=== PATIENT | female | born 1955 | race Two or more races ===

== ENCOUNTER 2021-02-05 09:28 | Day surgery (SDC) | payer MEDICAID ==
[2021-01-31 10:04] LABS: Basophils # (auto) 0.1 10 ^3/uL (0-0.2); Basophils % (auto) 0.9 % (0.0-2.0); Eosinophils # (auto) 0.2 10 ^3/uL (0-0.8); Eosinophils % (auto) 3.1 % (0.0-7.0); Hematocrit 43.6 % (36.0-46.0); Hemoglobin 14.9 g/dL (12.2-16.2); Lymphocytes % (auto) 32.5 % (10.0-50.0); Mean Corpuscular Hemoglobin 31.3 pg (28.0-32.0); Mean Corpuscular Hgb Conc. 34.3 g/dL (32.0-36.0); Mean Corpuscular Volume 91.3 fL (80.0-100.0); Monocytes # (auto) 0.4 10 ^3/uL (0-1.3); Monocytes % (auto) 6.4 % (0.0-12.0); Neutrophils # (auto) 3.6 10 ^3/uL (1.6-8.6); Neutrophils % (auto) 57.1 % (37.0-80.0); Nucleated Red Blood Cells % 0.1 %; Platelet Count (auto) 151 10^3/uL (140-450); Red Blood Cells 4.77 10^6/uL (4.0-5.20); Red Cell Distribution Width 13.8 % (11.8-14.3); White Blood Cell 6.2 10^3/uL (4.4-10.8)
[2021-01-31 10:30] LABS: Urine Bacteria NONE SEEN /hpf (None Seen); Urine Blood Negative /uL (Negative); Urine Specific Gravity 1.012 (1.001-1.035); Urine WBC <1 /hpf (0 - 5)
[2021-01-31 11:22] LABS: Albumin 3.9 g/dL (3.4-5.0); Calcium 9.3 mg/dL (8.5-10.1)
[2021-01-31 11:26] LABS: BUN/Creatinine Ratio 17.9; Bilirubin, Total 1.2 mg/dL (0.2-1.0); Total Protein 7.3 g/dL (6.4-8.2)
[~2021-02-05] VITALS: Ht 157.5 cm; Wt 68.0 kg
[~2021-02-05 09:28] MED LIST: CITA10TA8 PO; ROSU5TAB5 PO
[2021-02-05] MEDS ORDERED: ceFAZolin 1GM/50ML 100 ML IV ONE (10:32)
[2021-02-05] MEDS ORDERED: fentaNYL CITRATE 100 MCG/2 ML VL ONE (10:39)
[2021-02-05] MEDS ORDERED: MIDAZOLAM HCL 1MG/1ML-2 ML VIAL ONE (10:39)
[2021-02-05] MEDS ORDERED: PROPOFOL 10 MG/ML 20 ML IV ONE (10:39)
[2021-02-05] MEDS ORDERED: ONDANSETRON HCL 4 MG/2 ML VIAL ONE (10:39)
[2021-02-05] MEDS ORDERED: SODIUM CHLORIDE LOCK 10 ML ONE (10:39)
[2021-02-05] MEDS ORDERED: LIDOCAINE 2% (LOCAL ANESTH.) PF 5ml SDV ONE (10:39)
[2021-02-05] MEDS ORDERED: LIDOCAINE 1% HCL (LOCAL ANESTH.) INJ 20ML MDV ONE (11:32)
[2021-02-05] MEDS ORDERED: BUPIVACAINE HCL 50 ML ONE (11:32)
[2021-02-05] MEDS ORDERED: METOCLOPRAMIDE HCL 5MG/ml INJ 2ml VIAL IV PRN (12:15)
[2021-02-05] MEDS ORDERED: MORPHINE SULFATE 4 MG/ML SYR/VIAL IV PRN (12:15)
[2021-02-05] MEDS ORDERED: HYDROmorphone HCL 2 MG/ML VL IV PRN (12:15)
[2021-02-05 13:25] VITALS: BP 126/66
== END 2021-02-05 13:50 | disposition home or self-care (01) ==
LOC: SUR 09:28
PROVIDERS: ATTEND Podiatrist
DX: M21.622 Bunionette of left foot (principal); M21.621 Bunionette of right foot; E78.00 Pure hypercholesterolemia, unspecified; E78.5 Hyperlipidemia, unspecified; Z98.890 Other specified postprocedural states; Z20.822 Contact with and (suspected) exposure to COVID-19; Z79.899 Other long term (current) drug therapy; Z87.891 Personal history of nicotine dependence; Z68.27 Body mass index [BMI] 27.0-27.9, adult
CPT/HCPCS: 28110; 36415; 80053; 81001; 85025; 85049; J0690; J2001; J2250; J2405; J2704; J2765; J3010; J3490; U0003

== ENCOUNTER → 2023-08-26 | Outpatient (CLI) | payer MEDICAID ==
[2023-08-26 07:33] LABS: Urine Bacteria NONE SEEN /hpf (None Seen); Urine Blood 2+ /uL (Negative); Urine Clarity Clear (Clear); Urine Color Yellow (Yellow); Urine Mucus FEW (None Seen); Urine Protein, UAD Negative (Negative); Urine Specific Gravity 1.026 (1.001-1.035); Urine Urobilinogen Normal (Negative); Urine WBC 1 /hpf (0 - 5); Urine pH 5.5 (5.0-8.0)
[2023-08-26 08:04] LABS: % Iron Saturation 23.3 % (15-50)
[2023-08-26 08:07] LABS: Alanine Aminotransferase 18 U/L (7-40); Alkaline Phosphatase 115 U/L (46-116); Anion Gap 7 (5-15); BUN/Creatinine Ratio 16.2 (10.0-20.0); Blood Urea Nitrogen 12 mg/dL (9-23); Calcium 9.6 mg/dL (8.5-10.1); Carbon Dioxide 27 mmol/L (20-30); Chloride 105 mmol/L (98-107); Glucose 93 mg/dL (74-106); Potassium 3.9 mmol/L (3.5-5.1); Sodium 139 mmol/L (136-145); Triglycerides 115 mg/dL (< 150)
[2023-08-26 08:08] LABS: LDL Cholesterol 79 mg/dL (< 100)
[2023-08-26 08:09] LABS: Albumin 4.6 g/dL (3.2-4.8); Aspartate Aminotransferase 20 U/L (13-40); Cholesterol 153 mg/dL (< 200); HDL Cholesterol 58 mg/dL (40-59); Total Protein 7.4 g/dL (5.7-8.2)
[2023-08-26 09:22] LABS: Uric Acid 4.7 mg/dL (3.1-7.8)
[2023-08-26 10:18] LABS: Folate (Folic Acid) 20.96 ng/mL (>5.38)
== END | disposition home or self-care (01) ==
LOC: LAB 06:44
PROVIDERS: ATTEND Family Medicine
DX: Z00.00 Encounter for general adult medical examination without abnormal findings (principal)
CPT/HCPCS: 36415; 80053; 80061; 81001; 82607; 82746; 83036; 83540; 83550; 84403; 84443; 84550; 97110; 97116; 97530

== ENCOUNTER 2023-10-22 13:56 | Emergency (ER) | payer MEDICAID ==
[~2023-10-22] VITALS: Ht 157.5 cm; Wt 71.2 kg
[2023-10-22 14:46] VITALS: BP 135/91; PULSE 81; RESP 18; O2SAT 100
[2023-10-22 15:09] VITALS: TEMP 97.9
[2023-10-22] MEDS: ACETAMINOPHEN 500 MG TAB PO ONE (15:09)
== END 2023-10-22 15:38 | disposition left against medical advice (07) ==
LOC: ER 13:56
DX: S00.83XA Contusion of other part of head, initial encounter (principal); W22.8XXA Striking against or struck by other objects, initial encounter; Y93.89 Activity, other specified; Y92.89 Other specified places as the place of occurrence of the external cause; Y99.8 Other external cause status

== ENCOUNTER → 2023-10-29 | Outpatient (CLI) | payer MEDICAID ==
[2023-10-29 08:15] LABS: Alanine Aminotransferase 54 U/L (7-40); Albumin 4.5 g/dL (3.2-4.8); Alkaline Phosphatase 141 U/L (46-116); Anion Gap 6 (5-15); Aspartate Aminotransferase 21 U/L (13-40); BUN/Creatinine Ratio 15.4 (10.0-20.0); Basophils # (auto) 0 10 ^3/uL (0-0.2); Basophils % (auto) 0.3 % (0.0-2.0); Blood Urea Nitrogen 12 mg/dL (9-23); Calcium 9.6 mg/dL (8.5-10.1); Carbon Dioxide 28 mmol/L (20-30); Chloride 104 mmol/L (98-107); Eosinophils # (auto) 0.2 10 ^3/uL (0-0.8); Eosinophils % (auto) 2.5 % (0.0-7.0); Glucose 102 mg/dL (74-106); Hematocrit 39.5 % (36.0-46.0); Hemoglobin 13.2 g/dL (12.2-16.2); Lymphocytes # (auto) 0.5 10 ^3/uL (0.4-5.4); Lymphocytes % (auto) 8.5 % (10.0-50.0); Mean Corpuscular Hemoglobin 29.8 pg (28.0-32.0); Mean Corpuscular Hgb Conc. 33.4 g/dL (32.0-36.0); Mean Corpuscular Volume 89.3 fL (80.0-100.0); Monocytes # (auto) 0.3 10 ^3/uL (0-1.3); Monocytes % (auto) 5.7 % (0.0-12.0); Neutrophils # (auto) 5.1 10 ^3/uL (1.6-8.6); Potassium 4.9 mmol/L (3.5-5.1); Red Blood Cells 4.43 10^6/uL (4.0-5.20); Sodium 138 mmol/L (136-145); White Blood Cell 6.1 10^3/uL (4.4-10.8)
[2023-10-29 08:16] LABS: Bilirubin, Total 0.8 mg/dL (0.2-1.0); Total Protein 7.5 g/dL (5.7-8.2)
== END | disposition home or self-care (01) ==
LOC: LAB 07:45
PROVIDERS: ATTEND Family Medicine
DX: Z13.228 Encounter for screening for other metabolic disorders (principal); R68.89 Other general symptoms and signs
CPT/HCPCS: 36415; 80053; 85025

== ENCOUNTER → 2023-12-08 | Outpatient (CLI) | payer MEDICAID ==
[2023-12-08 10:33] LABS: Basophils # (auto) 0 10 ^3/uL (0-0.2); Eosinophils # (auto) 0 10 ^3/uL (0-0.8); Eosinophils % (auto) 0.7 % (0.0-7.0); Hemoglobin 11.1 g/dL (12.2-16.2); Monocytes # (auto) 0.3 10 ^3/uL (0-1.3); Nucleated Red Blood Cells % 0.1 %; White Blood Cell 6.2 10^3/uL (4.4-10.8)
[2023-12-08 10:37] LABS: Basophils % (auto) 0.3 % (0.0-2.0); Hematocrit 32.7 % (36.0-46.0); Lymphocytes # (auto) 0.3 10 ^3/uL (0.4-5.4); Lymphocytes % (auto) 5.4 % (10.0-50.0); Mean Corpuscular Hemoglobin 31.1 pg (28.0-32.0); Mean Corpuscular Volume 91.4 fL (80.0-100.0); Monocytes % (auto) 5.1 % (0.0-12.0); Neutrophils # (auto) 5.5 10 ^3/uL (1.6-8.6); Neutrophils % (auto) 88.5 % (37.0-80.0); Red Blood Cells 3.58 10^6/uL (4.0-5.20); Red Cell Distribution Width 17.2 % (11.8-14.3)
== END | disposition home or self-care (01) ==
LOC: LAB 10:07
PROVIDERS: ATTEND Student in an Organized Health Care Education/Training Program
DX: C34.11 Malignant neoplasm of upper lobe, right bronchus or lung (principal)
CPT/HCPCS: 36415; 82565; 84520; 85025

== ENCOUNTER → 2023-12-24 | Outpatient (CLI) | payer MEDICAID ==
[2023-12-24 07:20] LABS: Basophils # (auto) 0 10 ^3/uL (0-0.2); Eosinophils # (auto) 0 10 ^3/uL (0-0.8); Eosinophils % (auto) 1.2 % (0.0-7.0); Hematocrit 34.5 % (36.0-46.0); Hemoglobin 11.7 g/dL (12.2-16.2); Lymphocytes # (auto) 0.3 10 ^3/uL (0.4-5.4); Lymphocytes % (auto) 7.9 % (10.0-50.0); Mean Corpuscular Hemoglobin 32.6 pg (28.0-32.0); Monocytes # (auto) 0.3 10 ^3/uL (0-1.3); Neutrophils # (auto) 2.8 10 ^3/uL (1.6-8.6); Neutrophils % (auto) 80.9 % (37.0-80.0); Red Cell Distribution Width 20.8 % (11.8-14.3); White Blood Cell 3.4 10^3/uL (4.4-10.8)
[2023-12-24 07:42] LABS: Alanine Aminotransferase 21 U/L (7-40); Albumin 4.1 g/dL (3.2-4.8); Alkaline Phosphatase 125 U/L (46-116); Anion Gap 6 (5-15); Aspartate Aminotransferase 18 U/L (13-40); BUN/Creatinine Ratio 17.4 (10.0-20.0); Bilirubin, Total 0.9 mg/dL (0.2-1.0); Blood Urea Nitrogen 12 mg/dL (9-23); Calcium 9.5 mg/dL (8.7-10.4); Carbon Dioxide 27 mmol/L (20-30); Chloride 107 mmol/L (98-107); Glucose 102 mg/dL (74-106); Sodium 140 mmol/L (136-145)
[2023-12-24 07:46] LABS: Thyroid Stimulating Hormone 0.5 uIU/mL (0.55-4.78)
== END | disposition home or self-care (01) ==
LOC: LAB 06:42
PROVIDERS: ATTEND Student in an Organized Health Care Education/Training Program
DX: C34.11 Malignant neoplasm of upper lobe, right bronchus or lung (principal)
CPT/HCPCS: 36415; 80053; 83615; 84436; 84443; 84480; 85025

== ENCOUNTER → 2024-01-24 | Outpatient (CLI) | payer MEDICAID ==
[2024-01-24 07:39] LABS: Basophils # (auto) 0 10 ^3/uL (0-0.2); Basophils % (auto) 0.8 % (0.0-2.0); Eosinophils # (auto) 0.1 10 ^3/uL (0-0.8); Eosinophils % (auto) 2.6 % (0.0-7.0); Hematocrit 38.1 % (36.0-46.0); Hemoglobin 13.1 g/dL (12.2-16.2); Lymphocytes # (auto) 0.5 10 ^3/uL (0.4-5.4); Lymphocytes % (auto) 12.7 % (10.0-50.0); Mean Corpuscular Hemoglobin 32.9 pg (28.0-32.0); Mean Corpuscular Hgb Conc. 34.2 g/dL (32.0-36.0); Mean Corpuscular Volume 96.3 fL (80.0-100.0); Monocytes # (auto) 0.3 10 ^3/uL (0-1.3); Monocytes % (auto) 7.8 % (0.0-12.0); Neutrophils # (auto) 2.7 10 ^3/uL (1.6-8.6); Neutrophils % (auto) 76.1 % (37.0-80.0); Red Blood Cells 3.96 10^6/uL (4.0-5.20); Red Cell Distribution Width 15.3 % (11.8-14.3); White Blood Cell 3.6 10^3/uL (4.4-10.8)
[2024-01-24 07:59] LABS: Alanine Aminotransferase 25 U/L (7-40); Albumin 4.4 g/dL (3.2-4.8); Alkaline Phosphatase 130 U/L (46-116); Anion Gap 5 (5-15); Aspartate Aminotransferase 21 U/L (13-40); BUN/Creatinine Ratio 16.2 (10.0-20.0); Bilirubin, Total 1.1 mg/dL (0.2-1.0); Blood Urea Nitrogen 11 mg/dL (9-23); Calcium 9.7 mg/dL (8.5-10.1); Carbon Dioxide 25 mmol/L (20-30); Chloride 108 mmol/L (98-107); Glucose 99 mg/dL (74-106); Potassium 4.3 mmol/L (3.5-5.1); Sodium 138 mmol/L (136-145); Total Protein 7.1 g/dL (5.7-8.2)
[2024-01-24 08:03] LABS: Thyroid Stimulating Hormone 0.67 uIU/mL (0.55-4.78)
== END | disposition home or self-care (01) ==
LOC: LAB 06:54
PROVIDERS: ATTEND Student in an Organized Health Care Education/Training Program
DX: C34.11 Malignant neoplasm of upper lobe, right bronchus or lung (principal); Z79.899 Other long term (current) drug therapy
CPT/HCPCS: 36415; 80053; 83615; 84436; 84443; 84480; 85025

== ENCOUNTER → 2024-02-21 | Outpatient (CLI) | payer MEDICAID ==
[2024-02-21 07:56] LABS: Basophils # (auto) 0 10 ^3/uL (0-0.2); Basophils % (auto) 0.6 % (0.0-2.0); Eosinophils # (auto) 0.1 10 ^3/uL (0-0.8); Eosinophils % (auto) 2.1 % (0.0-7.0); Hematocrit 38.8 % (36.0-46.0); Hemoglobin 13.4 g/dL (12.2-16.2); Lymphocytes # (auto) 0.5 10 ^3/uL (0.4-5.4); Lymphocytes % (auto) 13.9 % (10.0-50.0); Mean Corpuscular Hemoglobin 32.7 pg (28.0-32.0); Mean Corpuscular Hgb Conc. 34.5 g/dL (32.0-36.0); Mean Corpuscular Volume 94.6 fL (80.0-100.0); Monocytes # (auto) 0.3 10 ^3/uL (0-1.3); Monocytes % (auto) 8.4 % (0.0-12.0); Neutrophils # (auto) 2.7 10 ^3/uL (1.6-8.6); Red Cell Distribution Width 13.2 % (11.8-14.3); White Blood Cell 3.6 10^3/uL (4.4-10.8)
[2024-02-21 08:29] LABS: Alanine Aminotransferase 16 U/L (7-40); Albumin 4.3 g/dL (3.2-4.8); Alkaline Phosphatase 130 U/L (46-116); Anion Gap 7 (5-15); Aspartate Aminotransferase 17 U/L (13-40); BUN/Creatinine Ratio 14.7 (10.0-20.0); Blood Urea Nitrogen 11 mg/dL (9-23); Calcium 9.7 mg/dL (8.7-10.4); Carbon Dioxide 26 mmol/L (20-30); Chloride 107 mmol/L (98-107); Glucose 97 mg/dL (74-106); Potassium 4.5 mmol/L (3.5-5.1); Sodium 140 mmol/L (136-145); Total Protein 6.8 g/dL (5.7-8.2)
[2024-02-21 08:36] LABS: Thyroid Stimulating Hormone 0.53 uIU/mL (0.55-4.78)
[2024-02-21 09:21] LABS: Free T4 (Free Thyroxine) 1.08 ng/dL (0.89-1.76)
[2024-02-21 09:25] LABS: T3 Total 1.56 ng/mL (0.60-1.81)
== END | disposition home or self-care (01) ==
LOC: LAB 06:37
PROVIDERS: ATTEND Student in an Organized Health Care Education/Training Program
DX: C34.11 Malignant neoplasm of upper lobe, right bronchus or lung (principal)
CPT/HCPCS: 36415; 80053; 83615; 84439; 84443; 84480; 85025

== ENCOUNTER → 2024-03-20 | Outpatient (CLI) | payer MEDICAID ==
[2024-03-20 07:41] LABS: Basophils # (auto) 0 10 ^3/uL (0-0.2); Basophils % (auto) 0.5 % (0.0-2.0); Eosinophils # (auto) 0.1 10 ^3/uL (0-0.8); Hemoglobin 14.5 g/dL (12.2-16.2); Lymphocytes # (auto) 0.8 10 ^3/uL (0.4-5.4); Lymphocytes % (auto) 15.9 % (10.0-50.0); Mean Corpuscular Hemoglobin 31.3 pg (28.0-32.0); Mean Corpuscular Hgb Conc. 33.8 g/dL (32.0-36.0); Mean Corpuscular Volume 92.7 fL (80.0-100.0); Monocytes # (auto) 0.4 10 ^3/uL (0-1.3); Neutrophils # (auto) 3.9 10 ^3/uL (1.6-8.6); Neutrophils % (auto) 75.6 % (37.0-80.0); Red Blood Cells 4.63 10^6/uL (4.0-5.20); Red Cell Distribution Width 13.4 % (11.8-14.3); White Blood Cell 5.2 10^3/uL (4.4-10.8)
[2024-03-20 08:00] LABS: Alanine Aminotransferase 23 U/L (7-40); Albumin 4.6 g/dL (3.2-4.8); Alkaline Phosphatase 148 U/L (46-116); Anion Gap 5 (5-15); Aspartate Aminotransferase 14 U/L (13-40); BUN/Creatinine Ratio 20.5 (10.0-20.0); Blood Urea Nitrogen 16 mg/dL (9-23); Calcium 9.8 mg/dL (8.7-10.4); Carbon Dioxide 28 mmol/L (20-30); Chloride 106 mmol/L (98-107); Glucose 92 mg/dL (74-106); Potassium 3.9 mmol/L (3.5-5.1); Sodium 139 mmol/L (136-145)
[2024-03-20 08:01] LABS: Bilirubin, Total 0.6 mg/dL (0.2-1.0); Total Protein 7.1 g/dL (5.7-8.2)
[2024-03-20 08:03] LABS: Thyroid Stimulating Hormone 0.91 uIU/mL (0.55-4.78)
== END | disposition home or self-care (01) ==
LOC: LAB 06:54
PROVIDERS: ATTEND Student in an Organized Health Care Education/Training Program
DX: C34.11 Malignant neoplasm of upper lobe, right bronchus or lung (principal)
CPT/HCPCS: 36415; 80053; 83615; 84436; 84443; 84480; 85025

== ENCOUNTER → 2024-03-28 | Outpatient (CLI) | payer MEDICAID ==
[2024-03-28 09:46] LABS: Basophils # (auto) 0 10 ^3/uL (0-0.2); Basophils % (auto) 0.5 % (0.0-2.0); Eosinophils # (auto) 0.1 10 ^3/uL (0-0.8); Eosinophils % (auto) 2.4 % (0.0-7.0); Hematocrit 41.4 % (36.0-46.0); Hemoglobin 13.9 g/dL (12.2-16.2); Lymphocytes # (auto) 0.6 10 ^3/uL (0.4-5.4); Lymphocytes % (auto) 11.2 % (10.0-50.0); Mean Corpuscular Hemoglobin 30.8 pg (28.0-32.0); Mean Corpuscular Hgb Conc. 33.5 g/dL (32.0-36.0); Mean Corpuscular Volume 91.9 fL (80.0-100.0); Monocytes # (auto) 0.4 10 ^3/uL (0-1.3); Monocytes % (auto) 7.4 % (0.0-12.0); Neutrophils # (auto) 4.4 10 ^3/uL (1.6-8.6); Neutrophils % (auto) 78.5 % (37.0-80.0); Nucleated Red Blood Cells % 0.2 %; Platelet Count (auto) 154 10^3/uL (140-450); Red Cell Distribution Width 13.7 % (11.8-14.3); White Blood Cell 5.5 10^3/uL (4.4-10.8)
[2024-03-28 10:16] LABS: Alanine Aminotransferase 23 U/L (7-40); Albumin 4.3 g/dL (3.2-4.8); Alkaline Phosphatase 140 U/L (46-116); Anion Gap 3 (5-15); Aspartate Aminotransferase 16 U/L (13-40); BUN/Creatinine Ratio 13.8 (10.0-20.0); Bilirubin, Total 0.6 mg/dL (0.2-1.0); Blood Urea Nitrogen 11 mg/dL (9-23); Calcium 10.1 mg/dL (8.7-10.4); Carbon Dioxide 29 mmol/L (20-30); Chloride 107 mmol/L (98-107); Glucose 99 mg/dL (74-106); Potassium 4.3 mmol/L (3.5-5.1); Sodium 139 mmol/L (136-145)
[2024-03-28 10:20] LABS: Thyroid Stimulating Hormone 0.57 uIU/mL (0.358-3.74)
[2024-03-28 10:21] LABS: Free T3 3.33 pg/mL (2.3-4.2)
[2024-03-28 10:22] LABS: Free T4 (Free Thyroxine) 1.18 ng/dL (0.89-1.76)
== END | disposition home or self-care (01) ==
LOC: LAB 09:18
PROVIDERS: ATTEND Student in an Organized Health Care Education/Training Program
DX: C34.11 Malignant neoplasm of upper lobe, right bronchus or lung (principal)
CPT/HCPCS: 36415; 80053; 83615; 84439; 84443; 84481; 85025

== ENCOUNTER 2024-04-14 11:01 | Emergency (ER) | payer MEDICAID, OTHER ==
[~2024-04-14] VITALS: Ht 160 cm; Wt 74.0 kg
[2024-04-14 16:25] LABS: Basophils # (auto) 0 10 ^3/uL (0-0.2); Basophils % (auto) 0.3 % (0.0-2.0); Eosinophils # (auto) 0.1 10 ^3/uL (0-0.8); Eosinophils % (auto) 1.7 % (0.0-7.0); Hematocrit 42.7 % (36.0-46.0); Hemoglobin 14.4 g/dL (12.2-16.2); Lymphocytes # (auto) 0.4 10 ^3/uL (0.4-5.4); Lymphocytes % (auto) 7.9 % (10.0-50.0); Mean Corpuscular Hemoglobin 30.7 pg (28.0-32.0); Mean Corpuscular Hgb Conc. 33.8 g/dL (32.0-36.0); Mean Corpuscular Volume 90.9 fL (80.0-100.0); Monocytes # (auto) 0.5 10 ^3/uL (0-1.3); Monocytes % (auto) 9.4 % (0.0-12.0); Neutrophils # (auto) 4.2 10 ^3/uL (1.6-8.6); Neutrophils % (auto) 80.7 % (37.0-80.0); Platelet Count (auto) 186 10^3/uL (140-450); White Blood Cell 5.3 10^3/uL (4.4-10.8)
[2024-04-14 16:45] LABS: Chloride 106 mmol/L (98-107); Sodium 137 mmol/L (136-145)
[2024-04-14 16:46] LABS: Anion Gap 9 (5-15); Calcium 9.9 mg/dL (8.7-10.4); Carbon Dioxide 22 mmol/L (20-30)
[2024-04-14 16:51] LABS: BUN/Creatinine Ratio 14.6 (10.0-20.0); Blood Urea Nitrogen 12 mg/dL (9-23); Glucose 112 mg/dL (74-106)
[2024-04-14] MEDS: IOHEXOL 300 MG/ML 100ML BOTTLE IJ ONE (17:00)
[2024-04-14] MEDS ORDERED: NAP500T GT (17:47)
[2024-04-14] MEDS: cloNIDine HCL 0.1 MG TAB PO ONE (18:17)
[2024-04-14] MEDS: ACETAMINOPHEN/CODEINE#3 (300/30mg) TAB PO ONE (18:36)
[2024-04-14 19:06] VITALS: BP 135/98; PULSE 102; RESP 17; O2SAT 100
[2024-04-17] MEDS ORDERED: MIDAZOLAM HCL 2MG/2ML 2ml VIAL (1mg/ml) ONE (09:22)
== END 2024-04-14 19:08 | disposition home or self-care (01) ==
LOC: ER 11:01
DX: C79.2 Secondary malignant neoplasm of skin (principal); C34.90 Malignant neoplasm of unspecified part of unspecified bronchus or lung; Z79.899 Other long term (current) drug therapy
CPT/HCPCS: 36415; 72126; 80048; 85025; 99285; Q9967

== ENCOUNTER → 2024-04-17 | Outpatient (CLI) | payer MEDICAID ==
[~2024-04-17] MED LIST changes: +LIDOCAINE 2%HCL (LOCAL ANESTH.) INJ 10ml MDV ONE; +MIDAZOLAM HCL 2MG/2ML 2ml VIAL (1mg/ml) IV ONE; +NAP500T GT; +fentaNYL CITRATE 100 MCG/2 ML VL IV ONE; +fentaNYL CITRATE 100 MCG/2 ML VL ONE
[2024-04-17 10:11] VITALS: BP 118/81; PULSE 90; RESP 13; TEMP 97.6; O2SAT 92
[2024-04-17 10:25] VITALS: BP 126/85; PULSE 87; RESP 14; O2SAT 92
[2024-04-17 10:40] VITALS: BP 127/85; PULSE 87; RESP 16; O2SAT 94
[2024-04-17 10:55] VITALS: BP 123/85; PULSE 92; RESP 14; O2SAT 94
[2024-04-17 11:10] VITALS: BP 124/91; PULSE 89; RESP 18; O2SAT 94
== END | disposition home or self-care (01) ==
LOC: XYW 08:10
PROVIDERS: ATTEND Family Medicine
DX: C34.11 Malignant neoplasm of upper lobe, right bronchus or lung (principal); C79.51 Secondary malignant neoplasm of bone; M89.9 Disorder of bone, unspecified; Z86.010 Personal history of colon polyps; E78.00 Pure hypercholesterolemia, unspecified; F32.A Depression, unspecified; Z90.49 Acquired absence of other specified parts of digestive tract; Z98.890 Other specified postprocedural states; Z80.0 Family history of malignant neoplasm of digestive organs
CPT/HCPCS: 20220; 72192; 77012; 88305; 88342; J2001; J3010; 10005

== ENCOUNTER → 2024-04-24 | Outpatient (CLI) | payer MEDICAID ==
[~2024-04-24] MED LIST changes: -LIDOCAINE 2%HCL (LOCAL ANESTH.) INJ 10ml MDV ONE; -MIDAZOLAM HCL 2MG/2ML 2ml VIAL (1mg/ml) IV ONE; -fentaNYL CITRATE 100 MCG/2 ML VL IV ONE; -fentaNYL CITRATE 100 MCG/2 ML VL ONE
[2024-04-24 07:35] LABS: Basophils # (auto) 0 10 ^3/uL (0-0.2); Basophils % (auto) 0.6 % (0.0-2.0); Eosinophils # (auto) 0.1 10 ^3/uL (0-0.8); Eosinophils % (auto) 2.9 % (0.0-7.0); Hematocrit 39.7 % (36.0-46.0); Hemoglobin 13.5 g/dL (12.2-16.2); Lymphocytes # (auto) 0.3 10 ^3/uL (0.4-5.4); Lymphocytes % (auto) 6.8 % (10.0-50.0); Mean Corpuscular Hemoglobin 30.2 pg (28.0-32.0); Mean Corpuscular Volume 88.8 fL (80.0-100.0); Monocytes # (auto) 0.3 10 ^3/uL (0-1.3); Monocytes % (auto) 8.7 % (0.0-12.0); Platelet Count (auto) 180 10^3/uL (140-450); Red Blood Cells 4.47 10^6/uL (4.0-5.20); Red Cell Distribution Width 13.7 % (11.8-14.3); White Blood Cell 3.7 10^3/uL (4.4-10.8)
[2024-04-24 08:07] LABS: Alanine Aminotransferase 23 U/L (7-40); Albumin 4.4 g/dL (3.2-4.8); Alkaline Phosphatase 149 U/L (46-116); Anion Gap 8 (5-15); Aspartate Aminotransferase 37 U/L (13-40); Bilirubin, Total 1.1 mg/dL (0.2-1.0); Blood Urea Nitrogen 18 mg/dL (9-23); Calcium 9.8 mg/dL (8.7-10.4); Carbon Dioxide 24 mmol/L (20-30); Chloride 107 mmol/L (98-107); Glucose 104 mg/dL (74-106); Potassium 4.4 mmol/L (3.5-5.1); Sodium 139 mmol/L (136-145); Total Protein 7.3 g/dL (5.7-8.2)
[2024-04-24 08:10] LABS: Thyroid Stimulating Hormone 1.06 uIU/mL (0.55-4.78)
[2024-04-24 12:55] LABS: Free T3 3.13 pg/mL (2.3-4.2)
[2024-04-24 12:56] LABS: Free T4 (Free Thyroxine) 1.33 ng/dL (0.89-1.76)
== END | disposition home or self-care (01) ==
LOC: LAB 06:38
PROVIDERS: ATTEND Student in an Organized Health Care Education/Training Program
DX: C34.11 Malignant neoplasm of upper lobe, right bronchus or lung (principal)
CPT/HCPCS: 36415; 80053; 83615; 84439; 84443; 84481; 85025

== ENCOUNTER → 2024-05-04 | Outpatient (CLI) | payer MEDICAID | END | disposition home or self-care (01) | LOC: XYW 08:30 | PROVIDERS: ATTEND Family Medicine | DX: C34.11 Malignant neoplasm of upper lobe, right bronchus or lung (principal) | CPT/HCPCS: 78306; A9503 ==

== ENCOUNTER → 2024-05-22 | Outpatient (CLI) | payer MEDICAID ==
[2024-05-22 06:55] LABS: Urine Bacteria None Seen /hpf (None Seen)
[2024-05-22 07:24] LABS: Urine Blood 1+ /uL (Negative); Urine Clarity Clear (Clear); Urine Color Light-Yellow (Yellow); Urine Hyaline Cast FEW /lpf (0 - 2); Urine Mucus FEW (None Seen); Urine Protein, UAD Negative (Negative); Urine Specific Gravity 1.026 (1.001-1.035); Urine Urobilinogen 2 mg/dL (Negative); Urine WBC 2 /hpf (0 - 5); Urine pH 5.5 (5.0-9.0)
[2024-05-22 07:27] LABS: Basophils # (auto) 0 10 ^3/uL (0-0.2); Basophils % (auto) 0.7 % (0.0-2.0); Eosinophils # (auto) 0.4 10 ^3/uL (0-0.8); Eosinophils % (auto) 9.2 % (0.0-7.0); Hematocrit 37.7 % (36.0-46.0); Hemoglobin 12.9 g/dL (12.2-16.2); Lymphocytes # (auto) 0.6 10 ^3/uL (0.4-5.4); Lymphocytes % (auto) 13.6 % (10.0-50.0); Mean Corpuscular Hemoglobin 30.1 pg (28.0-32.0); Mean Corpuscular Hgb Conc. 34.1 g/dL (32.0-36.0); Mean Corpuscular Volume 88.2 fL (80.0-100.0); Monocytes # (auto) 0.3 10 ^3/uL (0-1.3); Monocytes % (auto) 7.2 % (0.0-12.0); Neutrophils % (auto) 69.3 % (37.0-80.0); Nucleated Red Blood Cells % 0.1 %; Platelet Count (auto) 155 10^3/uL (140-450); Red Blood Cells 4.28 10^6/uL (4.0-5.20); Red Cell Distribution Width 15.5 % (11.8-14.3); White Blood Cell 4.4 10^3/uL (4.4-10.8)
[2024-05-22 07:53] LABS: % Iron Saturation 40.6 % (15-50)
[2024-05-22 07:56] LABS: Thyroid Stimulating Hormone 0.58 uIU/mL (0.55-4.78)
[2024-05-22 07:58] LABS: Alanine Aminotransferase 17 U/L (7-40); Albumin 4.3 g/dL (3.2-4.8); Alkaline Phosphatase 142 U/L (46-116); Anion Gap 8 (5-15); Aspartate Aminotransferase 31 U/L (13-40); BUN/Creatinine Ratio 26.4 (10.0-20.0); Blood Urea Nitrogen 19 mg/dL (9-23); Calcium 9.8 mg/dL (8.7-10.4); Carbon Dioxide 24 mmol/L (20-31); Chloride 110 mmol/L (98-107); Cholesterol 171 mg/dL (< 200); Glucose 99 mg/dL (74-106); HDL Cholesterol 48 mg/dL (40-59); LDL Cholesterol 103 mg/dL (< 100); Sodium 142 mmol/L (136-145); Triglycerides 161 mg/dL (< 150)
[2024-05-22 07:59] LABS: Bilirubin, Total 1.1 mg/dL (0.2-1.0); Total Protein 7.1 g/dL (5.7-8.2)
[2024-05-22 09:01] LABS: Uric Acid 4.6 mg/dL (3.1-7.8)
[2024-05-22 11:44] LABS: Folate (Folic Acid) 18.02 ng/mL (>5.38); T3 Total 1.77 ng/mL (0.60-1.81)
== END | disposition home or self-care (01) ==
LOC: LAB 06:35
PROVIDERS: ATTEND Family Medicine
DX: Z13.31 Encounter for screening for depression (principal); C80.1 Malignant (primary) neoplasm, unspecified; C34.11 Malignant neoplasm of upper lobe, right bronchus or lung; Z00.00 Encounter for general adult medical examination without abnormal findings
CPT/HCPCS: 36415; 80053; 80061; 81001; 82306; 82607; 82746; 83036; 83540; 83550; 83615; 84403; 84436; 84443; 84480; 84550; 85025

== ENCOUNTER → 2024-06-19 | Outpatient (CLI) | payer MEDICAID ==
[2024-06-19 13:11] LABS: Basophils # (auto) 0 10 ^3/uL (0-0.2); Basophils % (auto) 0.6 % (0.0-2.0); Eosinophils # (auto) 0.3 10 ^3/uL (0-0.8); Eosinophils % (auto) 8.8 % (0.0-7.0); Hematocrit 38.7 % (36.0-46.0); Hemoglobin 13.1 g/dL (12.2-16.2); Lymphocytes # (auto) 0.4 10 ^3/uL (0.4-5.4); Lymphocytes % (auto) 11.8 % (10.0-50.0); Mean Corpuscular Hemoglobin 30.5 pg (28.0-32.0); Mean Corpuscular Hgb Conc. 33.9 g/dL (32.0-36.0); Mean Corpuscular Volume 90.2 fL (80.0-100.0); Monocytes # (auto) 0.3 10 ^3/uL (0-1.3); Neutrophils # (auto) 2.5 10 ^3/uL (1.6-8.6); Neutrophils % (auto) 69.8 % (37.0-80.0); Nucleated Red Blood Cells % 0.3 %; Platelet Count (auto) 141 10^3/uL (140-450); Red Blood Cells 4.29 10^6/uL (4.0-5.20); Red Cell Distribution Width 15.5 % (11.8-14.3); White Blood Cell 3.6 10^3/uL (4.4-10.8)
[2024-06-19 13:55] LABS: Alanine Aminotransferase 17 U/L (7-40); Albumin 4.4 g/dL (3.2-4.8); Alkaline Phosphatase 119 U/L (46-116); Anion Gap 5 (5-15); Aspartate Aminotransferase 17 U/L (13-40); BUN/Creatinine Ratio 22.4 (10.0-20.0); Blood Urea Nitrogen 17 mg/dL (9-23); Carbon Dioxide 27 mmol/L (20-31); Chloride 110 mmol/L (98-107); Glucose 99 mg/dL (74-106); Potassium 4.5 mmol/L (3.5-5.1); Sodium 142 mmol/L (136-145)
[2024-06-19 13:56] LABS: Bilirubin, Total 0.9 mg/dL (0.2-1.0); Free T3 3.43 pg/mL (2.3-4.2); Free T4 (Free Thyroxine) 1.19 ng/dL (0.89-1.76); Total Protein 7.2 g/dL (5.7-8.2)
[2024-06-19 13:57] LABS: Thyroid Stimulating Hormone 0.58 uIU/mL (0.55-4.78)
== END | disposition home or self-care (01) ==
LOC: LAB 11:53
PROVIDERS: ATTEND Student in an Organized Health Care Education/Training Program
DX: C34.11 Malignant neoplasm of upper lobe, right bronchus or lung (principal)
CPT/HCPCS: 36415; 80053; 83615; 84439; 84443; 84481; 85025

== ENCOUNTER → 2024-06-30 | Outpatient (CLI) | payer MEDICAID ==
[2024-06-30 07:18] LABS: Basophils # (auto) 0 10 ^3/uL (0-0.2); Basophils % (auto) 0.5 % (0.0-2.0); Eosinophils # (auto) 0.1 10 ^3/uL (0-0.8); Eosinophils % (auto) 4.3 % (0.0-7.0); Hematocrit 40.6 % (36.0-46.0); Hemoglobin 13.9 g/dL (12.2-16.2); Lymphocytes # (auto) 0.3 10 ^3/uL (0.4-5.4); Lymphocytes % (auto) 9.1 % (10.0-50.0); Mean Corpuscular Hemoglobin 30.7 pg (28.0-32.0); Mean Corpuscular Hgb Conc. 34.2 g/dL (32.0-36.0); Mean Corpuscular Volume 89.8 fL (80.0-100.0); Monocytes # (auto) 0.3 10 ^3/uL (0-1.3); Monocytes % (auto) 7.2 % (0.0-12.0); Neutrophils # (auto) 2.7 10 ^3/uL (1.6-8.6); Neutrophils % (auto) 78.9 % (37.0-80.0); Nucleated Red Blood Cells % 0.1 %; Platelet Count (auto) 145 10^3/uL (140-450); Red Blood Cells 4.52 10^6/uL (4.0-5.20); Red Cell Distribution Width 14.9 % (11.8-14.3); White Blood Cell 3.5 10^3/uL (4.4-10.8)
[2024-06-30 07:40] LABS: Alanine Aminotransferase 29 U/L (7-40); Albumin 4.6 g/dL (3.2-4.8); Alkaline Phosphatase 115 U/L (46-116); Anion Gap 8 (5-15); Aspartate Aminotransferase 23 U/L (13-40); BUN/Creatinine Ratio 21.3 (10.0-20.0); Bilirubin, Total 0.8 mg/dL (0.2-1.0); Blood Urea Nitrogen 16 mg/dL (9-23); Calcium 10.2 mg/dL (8.7-10.4); Carbon Dioxide 27 mmol/L (20-31); Chloride 108 mmol/L (98-107); Glucose 104 mg/dL (74-106); Potassium 4.1 mmol/L (3.5-5.1); Sodium 143 mmol/L (136-145); Thyroid Stimulating Hormone 0.77 uIU/mL (0.55-4.78); Total Protein 7.4 g/dL (5.7-8.2)
[2024-06-30 07:41] LABS: Free T3 3.74 pg/mL (2.3-4.2)
[2024-06-30 07:42] LABS: Free T4 (Free Thyroxine) 1.23 ng/dL (0.89-1.76)
== END | disposition home or self-care (01) ==
LOC: LAB 06:36
PROVIDERS: ATTEND Student in an Organized Health Care Education/Training Program
DX: C34.11 Malignant neoplasm of upper lobe, right bronchus or lung (principal)
CPT/HCPCS: 36415; 80053; 83615; 84439; 84443; 84481; 85025

== ENCOUNTER → 2024-07-13 | Outpatient (CLI) | payer MEDICAID ==
[2024-07-13 14:58] LABS: Alanine Aminotransferase 29 U/L (7-40); Albumin 4.4 g/dL (3.2-4.8); Anion Gap 8 (5-15); Aspartate Aminotransferase 18 U/L (13-40); Blood Urea Nitrogen 16 mg/dL (9-23); Calcium 10.3 mg/dL (8.7-10.4); Carbon Dioxide 26 mmol/L (20-31); Chloride 106 mmol/L (98-107); Sodium 140 mmol/L (136-145)
[2024-07-13 14:59] LABS: Alkaline Phosphatase 134 U/L (46-116); Bilirubin, Total 0.4 mg/dL (0.2-1.0); Glucose 114 mg/dL (74-106); Total Protein 7.1 g/dL (5.7-8.2)
== END | disposition home or self-care (01) ==
LOC: LAB 14:14
PROVIDERS: ATTEND Family Medicine
DX: C80.1 Malignant (primary) neoplasm, unspecified (principal); C79.51 Secondary malignant neoplasm of bone; M89.9 Disorder of bone, unspecified
CPT/HCPCS: 36415; 80053

== ENCOUNTER 2024-07-30 00:15 | Emergency (ER) | payer MEDICAID ==
[~2024-07-30] VITALS: Ht 160 cm; Wt 74.0 kg
--- NOTE | 2024-07-30 00:39 | ED.PDOC ---
History of Present Illness HPI Comments 69-year-old female who came to ER via EMS pains. Patient does have history of lung cancer with metastases to the neck and hip area. Patient has finished radiotherapy and chemotherapy. Has been taking Percocet for the pain but has offered no relief. States for the past 2-3 weeks your pain on her neck area radiating down her left shoulder. Unable to sleep due to the pain. Chief Complaint: Body Pain Time Seen by MD: 00:39 Primary Care Provider: ANANYA Huddleston Notes: Nurses Notes Allergies: Coded Allergies: NO KNOWN ALLERGIES (Unverified , 02/03/21) Home Meds Active Scripts Pregabalin (Lyrica) 100 Mg Cap, 1 CAP PO TID PRN for 30 Days, #90 CAP Prov:DANIEL SIMPSON MD 07/30/24 Naproxen (NAPROSYN TABLET) 500 Mg Tb, 500 MG GT BID for 20 Days, #40 TAB Prov:PANKAJ PAIZ MD 04/14/24 Reported Medications Rosuvastatin Calcium (Crestor) 5 Mg Tab, 5 MG PO DAILY, TAB 02/03/21 Citalopram Hydrobromide (Celexa) 10 Mg Tab, 10 MG PO, TAB 02/03/21 Information Source: Patient Mode of Arrival: EMS Severity: Moderate Timing: Weeks Duration: Intermittent Prehospital treatment: None Past Medical History PAST MEDICAL HISTORY: Cancer Surgical History: Denies all surgeries WORKFORCE PLANNER History: No Pertinent WORKFORCE PLANNER History Family History Family History: Reviewed,noncontributory to illness Social History Smoker: Non-Smoker, Quit Greater Than 1 Year Alcohol: Denies ETOH Use Drugs: Denies Drug Use Lives In: Home Constitutional: denies: chills, diaphoresis, fatigue, fever, malaise, sweats, weakness, others EENTM: denies: blurred vision, double vision, ear bleeding, ear discharge, ear drainage, ear pain, ear ringing, eye pain, eye redness, hearing loss, mouth pain, mouth swelling, nasal discharge, nose bleeding, nose congestion, nose pain, photophobia, tearing, throat pain, throat swelling, voice changes, others Respiratory: denies: cough, hemoptysis, orthopnea, SOB at rest, shortness of breath, SOB with excertion, stridor, wheezing, others Cardiovascular: denies: chest pain, dizzy spells, diaphoresis, Dyspnea on exertion, edema, irregular heart beat, left arm pain, lightheadedness, palpitations, PND, syncope, others Gastrointestinal: denies: abdomen distended, abdominal pain, blood streaked bowels, constipated, diarrhea, dysphagia, difficulty swallowing, hematemesis, melena, nausea, poor appetite, poor fluid intake, rectal bleeding, rectal pain, vomiting, others Genitourinary: denies: abnormal vagina bleeding, burning, dyspareunia, dysuria, flank pain, frequency, hematuria, incontinence, pain, , vagina discharge, urgency, others Neurological: denies: dizziness, fainting, headache, left sided numbness, left sided weakness, numbness, paresthesia, pre-existing deficit, right sided numbness, right sided weakness, seizure, speech problems, tingling, tremors, weakness, others Musculoskeletal: reports: neck pain; denies: back pain, gout, joint pain, joint swelling, muscle pain, muscle stiffness, others Integumetry: denies: bruises, change in color, change in hair/nails, dryness, laceration, lesions, lumps, rash, wounds, others Allergic/Immunocompromised: denies: Difficulty Healing, Frequent Infections, Hives, Itching, others Hematologic/Lymphatic: denies: anemia, blood clots, easy bleeding, easy bruising, swollen glands, others Endocrine: denies: excessive hunger, excessive sweating, excessive thirst, excessive urination, flushing, intolerance to cold, intolerance to heat, unexplained weight gain, unexplained weight loss, others Psychiatric: denies: anxiety, bipolar disorder, depression, hopeless, panic disorder, schizophrenia, sleepless, suicidal, others Physical Exam General Appearance: No Apparent Distress, Normal HEENT: Normal ENT Inspection, Pharynx Normal, TMs Normal Neck: Full Range of Motion, Non-Tender, Normal, Normal Inspection Respiratory: Chest Non-Tender, Lungs Clear, No Accessory Muscle Use, No Respiratory Distress, Normal Breath Sounds Cardiovascular: No Edema, No JVD, No Murmur, No Gallop, Normal Peripheral Pulses, Regular Rate/Rhythm Breast Exam: Deferred Gastrointestinal: No Organomegaly, Non Tender, No Pulsatile Mass, Normal Bowel Sounds, Soft Genitalia: Deferred Pelvic: Deferred Rectal: Deferred Extremities: No calf tenderness, Normal capillary refill, Normal inspection, Normal range of motion, Non-tender, No pedal edema Musculoskeletal : Apperance: Normal Neurologic: Alert, check services clerk II-XII nml as Tested, No Motor Deficits, Normal Affect, Normal Mood, No Sensory Deficits Cerebellar Function: Normal Reflexes: Normal Skin: Dry, Normal Color, Warm Lymphatic: No Adenopathy Was a procedure done? Was a procedure done?: No Differential Dx Considerations may include: Lung cancer with metastases, chronic pain syndrome X-Ray, Labs, Meds, VS Vital Signs Date Time Temp Pulse Resp B/P (MAP) Pulse Ox O2 Delivery O2 Flow Rate FiO2 07/30/24 02:09 89 10 140/87 07/30/24 02:00 97.7 89 10 140/87 (104) 97 97.7 07/30/24 01:39 85 20 125/73 07/30/24 01:27 89 20 95 Room Air* 0 21 07/30/24 01:27 97.7 85 20 125/73 (90) 95 97.7 07/30/24 00:31 98.2 84 16 139/83 (101) 95 Current Medications Medications (Trade) Dose Ordered Sig/Cliff Route Start Time Stop Time Status Last Admin Ondansetron HCl (Zofran Po) 4 mg ONCE ONCE PO 07/30/24 00:45 07/30/24 00:46 DC 07/30/24 01:17 Hydromorphone HCl (Dilaudid Injection) 2 mg ONCE ONCE IV 07/30/24 01:45 07/30/24 01:46 DC 07/30/24 01:39 Time of 1ST Reevaluation: 00:36 Reevaluation 1ST: Unchanged Patient Education/Counseling: Diagnosis, Treatment Family Education/Counseling: No Family Present Departure 1 Departure Time of Disposition: 01:00 Impression: Primary Impression: Neck pain Additional Impression: Metastasis to bone Disposition: 01 HOME / SELF CARE / HOMELESS Condition: Stable e-Prescriptions Pregabalin (Lyrica) 100 Mg Cap 1 CAP PO TID PRN for 30 Days, #90 CAP Prov: DANIEL SIMPSON MD 07/30/24 Discharged With: Self, Relative, Spouse Critical Care Note Critical Care Time?: No Stability Stability form required: No Heart Score Heart Score: Heart Score Response (Comments) Value History N/A 0 EKG N/A 0 Age N/A 0 Risk Factors N/A 0 Troponin N/A 0 Total 0 I personally scribed for DANIEL SIMPSON MD ([email or web address]) on 07/30/24 at 00:39. Electronically submitted by Harris Gonsalez ([email or web address]). DANIEL SIMPSON MD Jul 30, 2024 00:39
[2024-07-30] MEDS ORDERED: HYDROmorphone HCL 2 MG/ML VL/or syr IM ONE (00:45)
[2024-07-30] MEDS: ONDANSETRON ODT 4 MG TAB PO ONE (01:17)
[2024-07-30 01:27] VITALS: PULSE 89; RESP 20; O2SAT 95
[2024-07-30] MEDS ORDERED: PREG100C PO (01:28)
[2024-07-30] MEDS ORDERED: HYDROMORPHONE HCL 1 MG/ML INJ IV ONE (01:30)
[2024-07-30] MEDS: HYDROmorphone HCL 2 MG/ML VL/or syr IV ONE (01:39)
[2024-07-30 02:00] VITALS: TEMP 97.7; O2SAT 97
[2024-07-30 02:09] VITALS: BP 140/87; PULSE 89; RESP 10
== END 2024-07-30 02:39 | disposition home or self-care (01) ==
LOC: ER 00:15 → EDBD 00:15 → ER 02:10
DX: M54.2 Cervicalgia (principal); C79.51 Secondary malignant neoplasm of bone; M25.512 Pain in left shoulder; Z79.1 Long term (current) use of non-steroidal anti-inflammatories (NSAID); Z79.899 Other long term (current) drug therapy; Z92.3 Personal history of irradiation
CPT/HCPCS: 96374; 99283; J1171; Q0162

== ENCOUNTER → 2024-08-01 | Outpatient (CLI) | payer MEDICAID ==
[~2024-08-01] MED LIST changes: +PREG100C PO
[2024-08-01 09:08] LABS: Basophils # (auto) 0 10 ^3/uL (0-0.2); Eosinophils # (auto) 0.1 10 ^3/uL (0-0.8); Eosinophils % (auto) 2.3 % (0.0-7.0); Hematocrit 40.8 % (36.0-46.0); Hemoglobin 13.8 g/dL (12.2-16.2); Lymphocytes # (auto) 0.6 10 ^3/uL (0.4-5.4); Lymphocytes % (auto) 18.1 % (10.0-50.0); Mean Corpuscular Hemoglobin 30.4 pg (28.0-32.0); Mean Corpuscular Hgb Conc. 33.7 g/dL (32.0-36.0); Mean Corpuscular Volume 90.1 fL (80.0-100.0); Monocytes # (auto) 0.3 10 ^3/uL (0-1.3); Monocytes % (auto) 9.6 % (0.0-12.0); Neutrophils # (auto) 2.2 10 ^3/uL (1.6-8.6); Nucleated Red Blood Cells % 0.1 %; Platelet Count (auto) 187 10^3/uL (140-450); Red Blood Cells 4.53 10^6/uL (4.0-5.20); White Blood Cell 3.1 10^3/uL (4.4-10.8)
[2024-08-01 09:42] LABS: Alanine Aminotransferase 34 U/L (7-40); Albumin 4.5 g/dL (3.2-4.8); Alkaline Phosphatase 106 U/L (46-116); Anion Gap 9 (5-15); Aspartate Aminotransferase 30 U/L (13-40); BUN/Creatinine Ratio 18.4 (10.0-20.0); Bilirubin, Total 0.9 mg/dL (0.2-1.0); Blood Urea Nitrogen 16 mg/dL (9-23); Carbon Dioxide 25 mmol/L (20-31); Chloride 105 mmol/L (98-107); Potassium 3.9 mmol/L (3.5-5.1); Sodium 139 mmol/L (136-145); Total Protein 7.4 g/dL (5.7-8.2)
[2024-08-01 09:43] LABS: Calcium 10.5 mg/dL (8.7-10.4); Glucose 107 mg/dL (74-106)
== END | disposition home or self-care (01) ==
LOC: LAB 08:48
PROVIDERS: ATTEND Student in an Organized Health Care Education/Training Program
DX: C34.11 Malignant neoplasm of upper lobe, right bronchus or lung (principal); G89.3 Neoplasm related pain (acute) (chronic)
CPT/HCPCS: 36415; 80053; 85025

== ENCOUNTER 2024-08-13 20:16 | Emergency (ER) | payer MEDICAID ==
[~2024-08-13] VITALS: Ht 165.1 cm; Wt 84.1 kg
--- NOTE | 2024-08-13 20:55 | ED.PDOC ---
History of Present Illness HPI Comments 69 y/o F, with a Hx of CA, is BIBA for c/o right hip and leg pain within the past 24x hours, today. Per EMS report, patient endorses on pain being a 10/10 and radiating from her right hip to her right knee and being unable to walk or bear weight on it since unprovoked onset. She comments on Hx of stage IV hip and neck CA in addition to stage III lung CA. On scene, patient was found by EMS staff with a SpO2 of 93%RA. En rout, patient was placed on O2 and given 150ug fentanyl to assist with pain. She denies any recent trauma or injuries and admits to receiving chemotherapy, daily, currently. She denies having any additional symptoms or modifiers at this time. Chief Complaint: Lower Extremity Time Seen by MD: 20:15 Primary Care Provider: ANANYA Huddleston Notes: Nurses Notes, Ware Finisher Notes, Medications, Allergies Allergies: Coded Allergies: NO KNOWN ALLERGIES (Unverified , 02/03/21) Home Meds Active Scripts Pregabalin (Lyrica) 100 Mg Cap, 1 CAP PO TID PRN for 30 Days, #90 CAP Prov:DANIEL SIMPSON MD 07/30/24 Naproxen (NAPROSYN TABLET) 500 Mg Tb, 500 MG GT BID for 20 Days, #40 TAB Prov:PANKAJ PAIZ MD 04/14/24 Reported Medications Rosuvastatin Calcium (Crestor) 5 Mg Tab, 5 MG PO DAILY, TAB 02/03/21 Citalopram Hydrobromide (Celexa) 10 Mg Tab, 10 MG PO, TAB 02/03/21 Information Source: Patient, Emergency Med Personnel Mode of Arrival: EMS Severity: Moderate Timing: Days Duration: Since onset Prehospital treatment: 12 Lead EKG, Tightener, Oxygen, Pain Meds Past Medical History PAST MEDICAL HISTORY: Cancer (stage III lung CA, stage IV left hip and neck CA ) Surgical History (Other): bowel resection MUSIC DEPARTMENT CHAIR History: No Pertinent MUSIC DEPARTMENT CHAIR History Family History Family History: Reviewed,noncontributory to illness Social History Smoker: Non-Smoker, Quit Greater Than 1 Year Alcohol: Denies ETOH Use Drugs: Denies Drug Use Lives In: Home Musculoskeletal: reports: others (right hip and leg pain ) All Other Systems: Reviewed and Negative (negative unless otherwise stated abov e or in HPI) Physical Exam General Appearance: No Apparent Distress, Normal HEENT: Normal ENT Inspection, Pharynx Normal, TMs Normal Neck: Full Range of Motion, Non-Tender, Normal, Normal Inspection Respiratory: Chest Non-Tender, Lungs Clear, No Accessory Muscle Use, No Respiratory Distress, Normal Breath Sounds Cardiovascular: No Edema, No JVD, No Murmur, No Gallop, Normal Peripheral Pu lses, Regular Rate/Rhythm Breast Exam: Deferred Gastrointestinal: No Organomegaly, Non Tender, No Pulsatile Mass, Normal Bowel Sounds, Soft Genitalia: Deferred Pelvic: Deferred Rectal: Deferred Extremities: No calf tenderness, Normal capillary refill, Normal inspection, Normal range of motion, No pedal edema, Tender (tender to right hip and knee and left thigh, unwilling to bear any weight due to pain ) Musculoskeletal : Apperance: Normal Neurologic: Alert, space operations officer II-XII nml as Tested, No Motor Deficits, Normal Affect, Normal Mood, No Sensory Deficits Cerebellar Function: Normal Reflexes: Normal Skin: Dry, Normal Color, Warm Lymphatic: No Adenopathy Was a procedure done? Was a procedure done?: No Differential Dx Considerations may include: CA metastasis, sciatica, musculoskeletal pain, sprain X-Ray, Labs, Meds, VS Vital Signs Date Time Temp Pulse Resp B/P (MAP) Pulse Ox O2 Delivery O2 Flow Rate FiO2 08/13/24 20:25 98.0 84 20 138/74 (95) 93 Lab Test 08/13/24 20:56 Range/Units White Blood Count 2.4 L 4.4-10.8 10^3/uL Red Blood Count 4.34 4.0-5.20 10^6/uL Hemoglobin 13.2 12.2-16.2 g/dL Hematocrit 38.6 36.0-46.0 % Mean Corpuscular Volume 89.0 80.0-100.0 fL Mean Corpuscular Hemoglobin 30.5 28.0-32.0 pg Mean Corpuscular Hemoglobin Concent 34.3 32.0-36.0 g/dL Red Cell Distribution Width 15.1 H 11.8-14.3 % Platelet Count 130 L 140-450 10^3/uL Mean Platelet Volume 9.1 6.9-10.8 fL Neutrophils (%) (Auto) 67.7 37.0-80.0 % Lymphocytes (%) (Auto) 18.2 10.0-50.0 % Monocytes (%) (Auto) 11.4 0.0-12.0 % Eosinophils (%) (Auto) 1.9 0.0-7.0 % Basophils (%) (Auto) 0.8 0.0-2.0 % Neutrophils # (Auto) 1.6 1.6-8.6 10 ^3/uL Lymphocytes # (Auto) 0.4 0.4-5.4 10 ^3/uL Monocytes # (Auto) 0.3 0-1.3 10 ^3/uL Eosinophils # (Auto) 0 0-0.8 10 ^3/uL Basophils # (Auto) 0 0-0.2 10 ^3/uL Nucleated Red Blood Cells 0.2 % Sodium Level 137 136-145 mmol/L Potassium Level 3.7 3.5-5.1 mmol/L Chloride Level 106 98-107 mmol/L Carbon Dioxide Level 24 20-31 mmol/L Anion Gap 7 5-15 Blood Urea Nitrogen 17 9-23 mg/dL Creatinine 0.84 0.550-1.02 mg/dL Glomerular Filtration Rate Calc 76 >90 mL/min BUN/Creatinine Ratio 20.2 H 10.0-20.0 Serum Glucose 127 H 74-106 mg/dL Calcium Level 9.6 8.7-10.4 mg/dL X-Ray, Labs, Meds, VS Comment Imaging: X-rays and CT scans were reviewed and interpreted by this provider, imaging shows no fractures and no pathological disease. Pending radiology revi ew. Laboratory: Labs reviewed and interpreted by this provider. No significant abnormalities noted. Patient has prior medical visits reviewed. Med reconciliation performed Vital signs reviewed Time of 1ST Reevaluation: 20:45 Reevaluation 1ST: Unchanged Patient Education/Counseling: Diagnosis, Treatment, Need For Follow Up (Follow up with PCP in the next 2-4 days. Return to the emergency department if symptoms worsened.) Family Education/Counseling: No Family Present Departure 1 Departure Time of Disposition: 23:42 Impression: Primary Impression: Lower back pain Qualified Codes: M54.42 - Lumbago with sciatica, left side; M54.41 - Lumbago with sciatica, right side Additional Impressions: Bilateral knee pain Qualified Codes: M25.561 - Pain in right knee; M25.562 - Pain in left knee Metastasis to bone Disposition: HOME / SELF CARE / HOMELESS Condition: Fair Discharged With: Self Critical Care Note Critical Care Time?: No Stability Stability form required: No Heart Score Heart Score: Heart Score Response (Comments) Value History N/A 0 EKG N/A 0 Age N/A 0 Risk Factors N/A 0 Troponin N/A 0 Total 0 I personally scribed for RAUL LUA ([email or web address]) on 08/13/24 at 20:54. Electronically submitted by Francisco Cotto ([email or web address]). RAUL LUA Aug 13, 2024 20:54
[2024-08-13 21:30] LABS: Chloride 106 mmol/L (98-107); Potassium 3.7 mmol/L (3.5-5.1); Sodium 137 mmol/L (136-145)
[2024-08-13 21:31] LABS: Anion Gap 7 (5-15); Calcium 9.6 mg/dL (8.7-10.4); Carbon Dioxide 24 mmol/L (20-31)
[2024-08-13 21:35] LABS: Basophils # (auto) 0 10 ^3/uL (0-0.2); Basophils % (auto) 0.8 % (0.0-2.0); Eosinophils # (auto) 0 10 ^3/uL (0-0.8); Eosinophils % (auto) 1.9 % (0.0-7.0); Hematocrit 38.6 % (36.0-46.0); Hemoglobin 13.2 g/dL (12.2-16.2); Lymphocytes # (auto) 0.4 10 ^3/uL (0.4-5.4); Lymphocytes % (auto) 18.2 % (10.0-50.0); Mean Corpuscular Hemoglobin 30.5 pg (28.0-32.0); Mean Corpuscular Hgb Conc. 34.3 g/dL (32.0-36.0); Monocytes # (auto) 0.3 10 ^3/uL (0-1.3); Monocytes % (auto) 11.4 % (0.0-12.0); Neutrophils # (auto) 1.6 10 ^3/uL (1.6-8.6); Neutrophils % (auto) 67.7 % (37.0-80.0); Nucleated Red Blood Cells % 0.2 %; Platelet Count (auto) 130 10^3/uL (140-450); Red Blood Cells 4.34 10^6/uL (4.0-5.20); Red Cell Distribution Width 15.1 % (11.8-14.3); White Blood Cell 2.4 10^3/uL (4.4-10.8)
[2024-08-13 21:36] LABS: BUN/Creatinine Ratio 20.2 (10.0-20.0); Blood Urea Nitrogen 17 mg/dL (9-23)
[2024-08-13 21:44] LABS: Glucose 127 mg/dL (74-106)
--- NOTE | 2024-08-13 22:05 | DVH ---
CT LS SPINE WO CONTRAST INDICATION: pain EXAM DATE: 08/13/2024 09:36 PM COMPARISON: None RADIATION DOSE: CTDIvol: 32.45 mGy, DLP: 975.41 mGy*cm PROCEDURE: Utilizing the CT scanner, contiguous axial scans were obtained through the lumbar spine. C oronal and sagittal reformatted images were then generated. All CT scans at this medical facility are performed using dose modulation techniques as appropriate t o a performed exam including the following: Automated exposure control was utilized; adjustment of th e MA and/or KV according to patient size; and use of iterative reconstruction technique. Findings/ IMPRESSION: No acute osseous abnormalities. No significant degenerative changes. Status post cholecystectomy. 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 Du e to the size of the lesion further evaluation with contrast enhanced MRI in a nonemergent setting is recommended. Partially visualized calcified uterine fibroids.
--- NOTE | 2024-08-13 22:09 | DVH ---
XY L KNEE 3V XRAY, INDICATION: pain TECHNICAL DATA: Multiple views of the bilateral knees. COMPARISON: None Findings/ IMPRESSION: No acute fracture or dislocation. No significant degenerative changes. Mild narrowing of the right m edial tibiofemoral joint compartment. No significant osteophytosis. No knee joint effusions. No radio paque foreign objects.
[2024-08-13] MEDS: methylPREDNISolone SOD SUCC 125 MG/2 ML VL IM ONE (23:58)
[2024-08-13] MEDS: KETOROLAC TROMETH 30 MG/ML 1ML VIAL IM ONE (23:58)
[2024-08-14] VITALS: BP 131/86; PULSE 92; RESP 16; O2SAT 98
== END 2024-08-14 00:12 | disposition home or self-care (01) ==
LOC: ER 20:16 → EDBD 20:16 → ER 08-14 00:09
DX: C79.51 Secondary malignant neoplasm of bone (principal); M54.50 Low back pain, unspecified; M25.561 Pain in right knee; M25.562 Pain in left knee; Z85.118 Personal history of other malignant neoplasm of bronchus and lung; Z90.49 Acquired absence of other specified parts of digestive tract; Z87.891 Personal history of nicotine dependence; Z79.1 Long term (current) use of non-steroidal anti-inflammatories (NSAID); Z79.899 Other long term (current) drug therapy
CPT/HCPCS: 36415; 72131; 73560; 73562; 80048; 85025; 96372; 99285; J1885; J2919

== ENCOUNTER → 2024-08-18 | Outpatient (CLI) | payer MEDICAID ==
[2024-08-18 07:30] LABS: Basophils # (auto) 0 10 ^3/uL (0-0.2); Basophils % (auto) 0.8 % (0.0-2.0); Eosinophils # (auto) 0.1 10 ^3/uL (0-0.8); Eosinophils % (auto) 2.2 % (0.0-7.0); Hematocrit 37.8 % (36.0-46.0); Hemoglobin 12.8 g/dL (12.2-16.2); Lymphocytes # (auto) 0.4 10 ^3/uL (0.4-5.4); Lymphocytes % (auto) 9.4 % (10.0-50.0); Mean Corpuscular Hemoglobin 30.3 pg (28.0-32.0); Mean Corpuscular Hgb Conc. 33.9 g/dL (32.0-36.0); Mean Corpuscular Volume 89.4 fL (80.0-100.0); Monocytes # (auto) 0.4 10 ^3/uL (0-1.3); Monocytes % (auto) 8.7 % (0.0-12.0); Neutrophils # (auto) 3.3 10 ^3/uL (1.6-8.6); Neutrophils % (auto) 78.9 % (37.0-80.0); Platelet Count (auto) 200 10^3/uL (140-450); Red Blood Cells 4.23 10^6/uL (4.0-5.20); Red Cell Distribution Width 15.1 % (11.8-14.3); White Blood Cell 4.2 10^3/uL (4.4-10.8)
[2024-08-18 07:37] LABS: Albumin 4.3 g/dL (3.2-4.8); Alkaline Phosphatase 110 U/L (46-116); Anion Gap 5 (5-15); BUN/Creatinine Ratio 13.2 (10.0-20.0); Blood Urea Nitrogen 10 mg/dL (9-23); Calcium 10.1 mg/dL (8.7-10.4); Carbon Dioxide 26 mmol/L (20-31); Chloride 107 mmol/L (98-107); Glucose 104 mg/dL (74-106); Potassium 4.1 mmol/L (3.5-5.1); Sodium 138 mmol/L (136-145)
[2024-08-18 07:38] LABS: Bilirubin, Total 0.6 mg/dL (0.2-1.0); Total Protein 7.3 g/dL (5.7-8.2)
[2024-08-18 07:41] LABS: Thyroid Stimulating Hormone 0.39 uIU/mL (0.55-4.78)
[2024-08-18 07:48] LABS: Alanine Aminotransferase 41 U/L (7-40); Aspartate Aminotransferase 43 U/L (13-40)
== END | disposition home or self-care (01) ==
LOC: LAB 06:32
PROVIDERS: ATTEND Student in an Organized Health Care Education/Training Program
DX: C34.11 Malignant neoplasm of upper lobe, right bronchus or lung (principal); G89.3 Neoplasm related pain (acute) (chronic); Z79.899 Other long term (current) drug therapy
CPT/HCPCS: 36415; 80053; 83615; 84436; 84443; 84480; 85025

== ENCOUNTER → 2024-10-06 | Outpatient (CLI) | payer MEDICAID ==
[2024-10-06 07:27] LABS: Urine Bacteria None Seen /hpf (None Seen)
[2024-10-06 08:01] LABS: Basophils # (auto) 0 10 ^3/uL (0-0.2); Basophils % (auto) 0.7 % (0.0-2.0); Eosinophils # (auto) 0.1 10 ^3/uL (0-0.8); Eosinophils % (auto) 2.2 % (0.0-7.0); Hematocrit 41.1 % (36.0-46.0); Hemoglobin 13.4 g/dL (12.2-16.2); Lymphocytes # (auto) 0.4 10 ^3/uL (0.4-5.4); Lymphocytes % (auto) 12.4 % (10.0-50.0); Mean Corpuscular Hemoglobin 30.5 pg (28.0-32.0); Mean Corpuscular Hgb Conc. 32.7 g/dL (32.0-36.0); Mean Corpuscular Volume 93.3 fL (80.0-100.0); Monocytes # (auto) 0.2 10 ^3/uL (0-1.3); Monocytes % (auto) 6.7 % (0.0-12.0); Neutrophils # (auto) 2.3 10 ^3/uL (1.6-8.6); Nucleated Red Blood Cells % 0.1 %; Platelet Count (auto) 142 10^3/uL (140-450); Red Cell Distribution Width 15.2 % (11.8-14.3)
[2024-10-06 08:04] LABS: Alanine Aminotransferase 21 U/L (7-40); Albumin 4.7 g/dL (3.2-4.8); Alkaline Phosphatase 98 U/L (46-116); Anion Gap 10 (5-15); Aspartate Aminotransferase 16 U/L (13-40); Blood Urea Nitrogen 16 mg/dL (9-23); Carbon Dioxide 25 mmol/L (20-31); Chloride 105 mmol/L (98-107); Glucose 95 mg/dL (74-106); Magnesium 2.2 mg/dL (1.6-2.6); Potassium 4.1 mmol/L (3.5-5.1); Sodium 140 mmol/L (136-145)
[2024-10-06 08:05] LABS: Bilirubin, Total 0.7 mg/dL (0.2-1.0); Total Protein 7.1 g/dL (5.7-8.2)
[2024-10-06 08:09] LABS: Cholesterol 287 mg/dL (< 200); HDL Cholesterol 64 mg/dL (40-59); LDL Cholesterol 199 mg/dL (< 100); Triglycerides 190 mg/dL (< 150)
[2024-10-06 08:41] LABS: Urine Blood 1+ /uL (Negative); Urine Clarity Clear (Clear); Urine Color Light-Yellow (Yellow); Urine Mucus FEW (None Seen); Urine Protein, UAD Negative (Negative); Urine Specific Gravity 1.025 (1.001-1.035); Urine Squamous Epithelial Cell FEW /hpf (<5); Urine Urobilinogen Normal (Negative); Urine WBC 1 /HPF (0-5)
[2024-10-06 08:59] LABS: Uric Acid 1.7 mg/dL (3.1-7.8)
[2024-10-06 09:14] LABS: % Iron Saturation 41.8 % (15-50)
[2024-10-06 09:18] LABS: Free T3 3.32 pg/mL (2.3-4.2); T3 Total 1.55 ng/mL (0.60-1.81)
[2024-10-06 09:22] LABS: Free T4 (Free Thyroxine) 1.18 ng/dL (0.89-1.76)
== END | disposition home or self-care (01) ==
LOC: LAB 06:37
PROVIDERS: ATTEND Family Medicine
DX: C34.90 Malignant neoplasm of unspecified part of unspecified bronchus or lung (principal); C80.1 Malignant (primary) neoplasm, unspecified; Z68.29 Body mass index [BMI] 29.0-29.9, adult
CPT/HCPCS: 36415; 80053; 80061; 81001; 82306; 82607; 83036; 83540; 83550; 83735; 84403; 84439; 84443; 84480; 84481; 84550; 85025; 87086

== ENCOUNTER 2024-10-16 16:19 | Emergency (ER) | payer MEDICAID ==
[~2024-10-16] VITALS: Ht 157.5 cm; Wt 70.0 kg
--- NOTE | 2024-10-16 16:26 | ED.PDOC ---
Parminder. trauma (HPI) HPI Comments 69 y.o female with PMHx of lung cancer, polyps, and arthritis, presents to the ED via EMS for a chief complaint of left ankle and knee pain s/p mechanical fall today. EMS reports patient resides at a skilled facility due to right hip arthritis. Patient was in the shower today, slipped and twisted her left ankle. Patient is unable to bear any weight to left foot and complains of 10/10 sharp pain with limited ROM. EMS administrated 100mcg of Fentanyl with some relief. Patient denies any dizziness, syncopal, head injuries, chest pain, or SOB. Pateint is actively undergoing chemotherapy for lung cancer that was diagnosed 2 years ago. She reports quitting tobacco use one year ago and denies any subs tance or alcohol use. Time Seen by MD: 16:17 Primary Care Provider: ANANYA Huddleston notes: Nurses Notes, Services Executive Notes, Medications, Allergies Allergies: Coded Allergies: NO KNOWN ALLERGIES (Unverified , 02/03/21) Home Meds Active Scripts Hydrocodone-Acetaminophen (Hydrocodone Bitartrate/AC 5-325 mg) 1 Tab Tab, 1 TAB PO Q8HP PRN for 7 Days, #21 TAB Prov:RICH NOLASCO MD 10/16/24 Pregabalin (Lyrica) 100 Mg Cap, 1 CAP PO TID PRN for 30 Days, #90 CAP Prov:DANIEL SIMPSON MD 07/30/24 Naproxen (NAPROSYN TABLET) 500 Mg Tb, 500 MG GT BID for 20 Days, #40 TAB Prov:PANKAJ PAIZ MD 04/14/24 Reported Medications Rosuvastatin Calcium (Crestor) 5 Mg Tab, 5 MG PO DAILY, TAB 02/03/21 Citalopram Hydrobromide (Celexa) 10 Mg Tab, 10 MG PO, TAB 02/03/21 Information Source: Patient, Emergency Med Personnel Severity: Moderate Timing: Hours Duration: Since onset Prehospital treatment: Pain Meds (100mcg fentanyl ) Location: (L) Ankle, (L) Knee Location of laceration: None Associated signs and symtoms: Other Past Medical History PAST MEDICAL HISTORY: Arthritis, Cancer (lung ) Past Medical History (Other): polyps Surgical History: Cholecystectomy, Tonsillectomy Surgical History (Other): small intestine, cataracts, and left shoulder SOFTWARE CLERK History: No Pertinent SOFTWARE CLERK History Family History Family History: Reviewed,noncontributory to illness Social History Smoker: Non-Smoker, Quit Greater Than 1 Year Alcohol: Denies ETOH Use Drugs: Denies Drug Use Lives In: Home Constitutional: denies: chills, diaphoresis, fatigue, fever, malaise, sweats, weakness, others EENTM: denies: blurred vision, double vision, ear bleeding, ear discharge, ear drainage, ear pain, ear ringing, eye pain, eye redness, hearing loss, mouth pain, mouth swelling, nasal discharge, nose bleeding, nose congestion, nose pain, photophobia, tearing, throat pain, throat swelling, voice changes, others Respiratory: denies: cough, hemoptysis, orthopnea, SOB at rest, shortness of breath, SOB with excertion, stridor, wheezing, others Cardiovascular: denies: chest pain, dizzy spells, diaphoresis, Dyspnea on exertion, edema, irregular heart beat, left arm pain, lightheadedness, palpitations, PND, syncope, others Gastrointestinal: denies: abdomen distended, abdominal pain, blood streaked bowels, constipated, diarrhea, dysphagia, difficulty swallowing, hematemesis, melena, nausea, poor appetite, poor fluid intake, rectal bleeding, rectal pain, vomiting, others Genitourinary: denies: abnormal vagina bleeding, burning, dyspareunia, dysuria, flank pain, frequency, hematuria, incontinence, pain, , vagina discharge, urgency, others Neurological: denies: dizziness, fainting, headache, left sided numbness, left sided weakness, numbness, paresthesia, pre-existing deficit, right sided numbness, right sided weakness, seizure, speech problems, tingling, tremors, weakness, others Musculoskeletal: reports: others (left ankle and knee pain ); denies: back pain, gout, joint pain, joint swelling, muscle pain, muscle stiffness, neck pain Integumetry: denies: bruises, change in color, change in hair/nails, dryness, laceration, lesions, lumps, rash, wounds, others Allergic/Immunocompromised: denies: Difficulty Healing, Frequent Infections, Hives, Itching, others Hematologic/Lymphatic: denies: anemia, blood clots, easy bleeding, easy bruising, swollen glands, others Endocrine: denies: excessive hunger, excessive sweating, excessive thirst, excessive urination, flushing, intolerance to cold, intolerance to heat, unexplained weight gain, unexplained weight loss, others Psychiatric: denies: anxiety, bipolar disorder, depression, hopeless, panic disorder, schizophrenia, sleepless, suicidal, others All Other Systems: Reviewed and Negative Physical Exam General Appearance: Moderate Distress HEENT: Normal ENT Inspection, Pharynx Normal, TMs Normal Neck: Full Range of Motion, Non-Tender, Normal, Normal Inspection Respiratory: Chest Non-Tender, Lungs Clear, No Accessory Muscle Use, No Respiratory Distress, Normal Breath Sounds Cardiovascular: No Edema, No JVD, No Murmur, No Gallop, Normal Peripheral Pulses, Regular Rate/Rhythm Breast Exam: Deferred Gastrointestinal: No Organomegaly, Non Tender, No Pulsatile Mass, Normal Bowel Sounds, Soft Genitalia: Deferred Pelvic: Deferred Rectal: Deferred Extremities: No calf tenderness, Normal capillary refill, No pedal edema Musculoskeletal : Location: Left Extremity Location: Ankle Apperance: Deformity, Limited ROM, Tenderness: Moderate Neurologic: Alert, emergency planner II-XII nml as Tested, No Motor Deficits, Normal Affect, Normal Mood, No Sensory Deficits Cerebellar Function: Normal Reflexes: Normal Skin: Dry, Normal Color, Warm Lymphatic: No Adenopathy Was a procedure done? Was a procedure done?: No Differential Diagnosis Multiple Trauma: Fractures, Contusion X-Ray, Labs, Meds, VS Vital Signs Date Time Temp Pulse Resp B/P (MAP) Pulse Ox O2 Delivery O2 Flow Rate FiO2 10/16/24 18:28 82 16 119/83 10/16/24 18:25 82 16 119/83 (95) 99 10/16/24 18:25 82 16 99 Room Air* 0 21 10/16/24 16:25 98.4 81 18 123/81 (95) 99 Current Medications Medications (Trade) Dose Ordered Sig/Cliff Route Start Time Stop Time Status Last Admin Acetaminophen/ Hydrocodone Bitart ([place] 5/325MG Tab) 1 tab ONCE ONCE PO 10/16/24 17:30 10/16/24 17:31 DC 10/16/24 17:42 Morphine Sulfate 4 mg ONCE ONCE IV 10/16/24 18:15 10/16/24 18:16 DC 10/16/24 18:28 Ondansetron HCl (Zofran) 4 mg ONCE ONCE IV 10/16/24 18:15 10/16/24 18:16 DC 10/16/24 18:28 CT Head Without Intravenous Contrast IMPRESSION: 1. No acute intracranial hemorrhage, midline shift or mass effect. If symptoms persist, further evaluation with MRI is recommended. 2. Mild small vessel ischemic/degenerative changes. TECHNIQUE: XY L KNEE 2V XRAY FINDINGS/IMPRESSION: : There is no evidence of acute fracture or dislocation. Soft tissues are unremarkable. TECHNIQUE: 3-view left ankle XY L ANKLE 3 VIEW FINDINGS/IMPRESSION: : Fracture seen of the distal fibula. Fracture seen of the medial malleolus. Ankle mortise is intact. Talar dome is normal. Normal calcaneus Marked soft tissue swelling The patient was being splinted with a posterior splint and stirrup splint The patient was given morphine for the pain and Zofran for the nausea At this time the patient was being given a prescription of [place]. The patient is being discharged after speaking to the orthopedic surgeon. The orthopedic surgeon will follow up the patient was an outpatient Time of 1ST Reevaluation: 16:21 Reevaluation 1ST: Unchanged Patient Education/Counseling: Diagnosis, Treatment, Prognosis Family Education/Counseling: No Family Present Departure 1 Departure Time of Disposition: 18:38 Impression: Primary Impression: Closed left ankle fracture Qualified Codes: S82.892A - Other fracture of left lower leg, initial encounter for closed fracture Additional Impression: Contusion of left knee Qualified Codes: S80.02XA - Contusion of left knee, initial encounter Disposition: 01 HOME / SELF CARE / HOMELESS Condition: Fair e-Prescriptions Hydrocodone-Acetaminophen (Hydrocodone Bitartrate/AC 5-325 mg) 1 Tab Tab 1 TAB PO Q8HP PRN for 7 Days, #21 TAB Prov: RICH NOLASCO MD 10/16/24 Discharged With: Self, Relative Critical Care Note Critical Care Time?: No Stability Stability form required: No Heart Score Heart Score: Heart Score Response (Comments) Value History N/A 0 EKG N/A 0 Age N/A 0 Risk Factors N/A 0 Troponin N/A 0 Total 0 I personally scribed for RICH NOLASCO MD ([email or web address]) on 10/16/24 at 16:26. Electronically submitted by Yaritza Barragan ([facility]). I personally scribed for RICH NOLASCO MD ([email or web address]) on 10/16/24 at 18:21. Electronically submitted by Yaritza Barragan ([facility]). RICH NOLASCO MD Oct 16, 2024 16:26
--- NOTE | 2024-10-16 17:08 | DVH ---
CLINICAL INDICATION: fall TECHNIQUE: 3-view left ankle XY L ANKLE 3 VIEW Comparison: None FINDINGS/IMPRESSION: : Fracture seen of the distal fibula. Fracture seen of the medial malleolus. Ankle mortise is intact. Talar dome is normal. Normal calcaneus Marked soft tissue swelling
--- NOTE | 2024-10-16 17:09 | DVH ---
CLINICAL INDICATION: fall TECHNIQUE: XY L KNEE 2V XRAY Comparison: XY L KNEE 3V XRAY on DOS: 08/13/24, XY R KNEE 2V XRAY on DOS: 08/13/24 FINDINGS/IMPRESSION: : There is no evidence of acute fracture or dislocation. Soft tissues are unremarkable.
[2024-10-16] MEDS: HYDROcodone-ACET 5/325MG TAB PO ONE (17:42)
--- NOTE | 2024-10-16 17:58 | DVH ---
EXAM: CT Head Without Intravenous Contrast CLINICAL INDICATION: trauma TECHNIQUE: Axial computed tomography images of the head/brain without intravenous contrast. This CT exam was performed using one or more of the following dose reduction techniques: automated exposure control, adjustment of the mA and/or kV according to patient size, and/or use of iterative reconstru ction technique. CONTRAST: RADIATION DOSE: CTDIvol = 50.06 mGy, DLP = 902.87 mGy-cm COMPARISON: None FINDINGS: BRAIN AND EXTRA-AXIAL SPACES: The cerebral and cerebellar sulci are mildly prominent consistent wit h mild brain atrophy. No acute intracranial hemorrhage, midline shift or mass effect. If symptoms pe rsist, further evaluation with MRI is recommended. Mild areas of decreased attenuation in the deep c erebral white matter are consistent with mild small vessel ischemic/degenerative changes. BONES/JOINTS: Unremarkable. No acute fracture. SOFT TISSUES: Unremarkable. SINUSES: Unremarkable as visualized. No acute sinusitis. MASTOID AIR CELLS: Unremarkable as visualized. No mastoid effusion. OTHER FINDINGS: . . IMPRESSION: 1. No acute intracranial hemorrhage, midline shift or mass effect. If symptoms persist, further eval uation with MRI is recommended. 2. Mild small vessel ischemic/degenerative changes.
[2024-10-16 18:25] VITALS: PULSE 82; RESP 16; O2SAT 99
[2024-10-16] MEDS: MORPHINE SULFATE 4 MG/ML SYR/VIAL IV ONE (18:28)
[2024-10-16] MEDS: ONDANSETRON HCL 4 MG/2 ML VIAL IV ONE (18:28)
[2024-10-16] MEDS ORDERED: HYDR-4902 PO (18:35)
[2024-10-16 18:58] VITALS: BP 113/71; PULSE 88; RESP 16; TEMP 98; O2SAT 96
== END 2024-10-16 19:02 | disposition home or self-care (01) ==
LOC: ER 16:19 → EDBD 16:19 → ER 19:02
DX: S82.55XA Nondisplaced fracture of medial malleolus of left tibia, initial encounter for closed fracture (principal); S80.02XA Contusion of left knee, initial encounter; R51.9 Headache, unspecified; Z79.899 Other long term (current) drug therapy; Z90.49 Acquired absence of other specified parts of digestive tract; Z90.89 Acquired absence of other organs; Z98.890 Other specified postprocedural states; X50.1XXA Overexertion from prolonged static or awkward postures, initial encounter; Y93.89 Activity, other specified; Y92.89 Other specified places as the place of occurrence of the external cause; Y99.8 Other external cause status
CPT/HCPCS: 29515; 70450; 73560; 73610; 96374; 96375; 99285; J2270; J2405

== ENCOUNTER 2024-10-22 08:12 | Inpatient (IN) | payer MEDICAID ==
[~2024-10-22] VITALS: Ht 157.5 cm; Wt 76.0 kg
[~2024-10-22 08:12] MED LIST changes: +HYDR-4902 PO
--- NOTE | 2024-10-22 08:49 | ED.PDOC ---
Musculoskeletal HPI Comments 69-year-old female presents with a chief complaint of left ankle pain s/p fall. Patient states that she had a fall x 1 week ago and fractured her left ankle. Patient mentions that she was sent here to be admitted for surgery on her ankle by Dr. Mobley. Patient is in a cast at this time. Chief Complaint: Lower Extremity Time Seen by MD: 08:45 Primary Care Provider: JOE Huddleston Notes: Medications, Allergies Allergies: Coded Allergies: NO KNOWN ALLERGIES (Unverified , 02/03/21) Home Meds Active Scripts Hydrocodone-Acetaminophen (Hydrocodone Bitartrate/AC 5-325 mg) 1 Tab Tab, 1 TAB PO Q8HP PRN for 7 Days, #21 TAB Prov:RICH NOLASCO MD 10/16/24 Pregabalin (Lyrica) 100 Mg Cap, 1 CAP PO TID PRN for 30 Days, #90 CAP Prov:DANIEL SIMPSON MD 07/30/24 Naproxen (NAPROSYN TABLET) 500 Mg Tb, 500 MG GT BID for 20 Days, #40 TAB Prov:PANKAJ PAIZ MD 04/14/24 Reported Medications Rosuvastatin Calcium (Crestor) 5 Mg Tab, 5 MG PO DAILY, TAB 02/03/21 Citalopram Hydrobromide (Celexa) 10 Mg Tab, 10 MG PO, TAB 02/03/21 Information Source: Patient Mode of Arrival: Wheelchair Location: Left Extremity Location: Ankle Timing: Days Prehospital treatment: None Severity: Moderate Able to Move Extremity: Yes Bear Weight: No Pain: Moderate Hand Dominance: Right Mechanism: Twisting Circumstances: Fall Onset of Symptoms: After Trauma Symptoms: Pain DVT Risk Factors: NONE Last Tetanus: Unknown Past Medical History PAST MEDICAL HISTORY: Arthritis, Cancer Surgical History: Cholecystectomy, Tonsillectomy FULL TIME History: No Pertinent FULL TIME History Family History Family History: Reviewed,noncontributory to illness Social History Smoker: Non-Smoker, Quit Greater Than 1 Year Alcohol: Denies ETOH Use Drugs: Denies Drug Use Lives In: Home Constitutional: denies: chills, diaphoresis, fatigue, fever, malaise, sweats, w eakness, others EENTM: denies: blurred vision, double vision, ear bleeding, ear discharge, ear drainage, ear pain, ear ringing, eye pain, eye redness, hearing loss, mouth pain, mouth swelling, nasal discharge, nose bleeding, nose congestion, nose pain, photophobia, tearing, throat pain, throat swelling, voice changes, others Respiratory: denies: cough, hemoptysis, orthopnea, SOB at rest, shortness of breath, SOB with excertion, stridor, wheezing, others Cardiovascular: denies: chest pain, dizzy spells, diaphoresis, Dyspnea on exertion, edema, irregular heart beat, left arm pain, lightheadedness, palpitations, PND, syncope, others Gastrointestinal: denies: abdomen distended, abdominal pain, blood streaked bowels, constipated, diarrhea, dysphagia, difficulty swallowing, hematemesis, melena, nausea, poor appetite, poor fluid intake, rectal bleeding, rectal pain, vomiting, others Genitourinary: denies: abnormal vagina bleeding, burning, dyspareunia, dysuria, flank pain, frequency, hematuria, incontinence, pain, , vagina di scharge, urgency, others Neurological: denies: dizziness, fainting, headache, left sided numbness, left sided weakness, numbness, paresthesia, pre-existing deficit, right sided numbness, right sided weakness, seizure, speech problems, tingling, tremors, weakness, others Musculoskeletal: reports: joint pain, muscle pain; denies: back pain, gout, joint swelling, muscle stiffness, neck pain, others Integumetry: denies: bruises, change in color, change in hair/nails, dryness, laceration, lesions, lumps, rash, wounds, others Allergic/Immunocompromised: denies: Difficulty Healing, Frequent Infections, Hives, Itching, others Hematologic/Lymphatic: denies: anemia, blood clots, easy bleeding, easy bruising, swollen glands, others Endocrine: denies: excessive hunger, excessive sweating, excessive thirst, excessive urination, flushing, intolerance to cold, intolerance to heat, unexplained weight gain, unexplained weight loss, others Psychiatric: denies: anxiety, bipolar disorder, depression, hopeless, panic disorder, schizophrenia, sleepless, suicidal, others All Other Systems: Reviewed and Negative Physical Exam General Appearance: No Apparent Distress, Normal HEENT: Normal ENT Inspection, Pharynx Normal, TMs Normal Neck: Full Range of Motion, Non-Tender, Normal, Normal Inspection Respiratory: Chest Non-Tender, Lungs Clear, No Accessory Muscle Use, No Respiratory Distress, Normal Breath Sounds Cardiovascular: No Edema, No JVD, No Murmur, No Gallop, Normal Peripheral Pulses, Regular Rate/Rhythm Breast Exam: Deferred Gastrointestinal: No Organomegaly, Non Tender, No Pulsatile Mass, Normal Bowel Sounds, Soft Genitalia: Deferred Pelvic: Deferred Rectal: Deferred Extremities: Decreased range of motion, Normal capillary refill, No pedal edema, Other (LEFT LEG CAST DUE TO ANKLE FRACTURE) Musculoskeletal : Apperance: Normal Neurologic: Alert, fireproof door maker II-XII nml as Tested, No Motor Deficits, Normal Affect, Normal Mood, No Sensory Deficits Cerebellar Function: Normal Reflexes: Normal Skin: Dry, Normal Color, Warm Lymphatic: No Adenopathy Was a procedure done? Was a procedure done?: No Differential Diagnosis EXT Differential Diagnosis: Compartment Syndrome, Fracture, Sprain, Dislocation, DJD, Contusion, Strain, Neurovascular injury, Arthritis X-Ray, Labs, Meds, VS Vital Signs Date Time Temp Pulse Resp B/P (MAP) Pulse Ox O2 Delivery O2 Flow Rate FiO2 10/22/24 08:40 72 18 98 Room Air 10/22/24 08:40 97.4 72 18 131/63 (85) 98 97.4 10/22/24 08:35 Room Air* 0 21 10/22/24 08:15 97.2 74 16 123/69 (87) 98 97.2 Time of 1ST Reevaluation: 09:15 Reevaluation 1ST: Unchanged Patient Education/Counseling: Diagnosis, Treatment, Prognosis, Need For Follow Up Family Education/Counseling: No Family Present Additional Information Previous visit documents reviewed: 10/16/2024 for Left Ankle Fracture The following tests were ordered, and results were reviewed by me:cbc. bmp, ekg, cxr, pt/ptt I reviewed and agreed with the following test results read by other providers: radiology I discussed treatment and results with medical personnel and: Patient pt has a fracture which orhto would like to admit for repair. pt is stable for admission Departure 1 Departure Time of Disposition: 10:16 Impression: Primary Impression: Closed left ankle fracture Disposition: ADMITTED INPATIENT Admit to: Med Surg Condition: Stable Discharged With: Self Critical Care Note Critical Care Time?: No Stability Stability form required: No Heart Score Heart Score: Heart Score Response (Comments) Value History N/A 0 EKG N/A 0 Age N/A 0 Risk Factors N/A 0 Troponin N/A 0 Total 0 I personally scribed for CHRISTINE HARRIS MD ([email or web address]) on 10/22/24 at 08:49. Electronically submitted by Errol Betancur ([email or web address]). I personally scribed for CHRISTINE HARRIS MD ([email or web address]) on 10/22/24 at 08:51. Electronically submitted by Errol Betancur ([email or web address]). CHRISTINE HARRIS MD Oct 22, 2024 08:49
[2024-10-22 10:34] LABS: Basophils # (auto) 0 10 ^3/uL (0-0.2); Basophils % (auto) 0.8 % (0.0-2.0); Eosinophils # (auto) 0.1 10 ^3/uL (0-0.8); Eosinophils % (auto) 2.1 % (0.0-7.0); Hematocrit 35.1 % (36.0-46.0); Hemoglobin 11.5 g/dL (12.2-16.2); Lymphocytes # (auto) 0.4 10 ^3/uL (0.4-5.4); Mean Corpuscular Hemoglobin 30.9 pg (28.0-32.0); Mean Corpuscular Hgb Conc. 32.8 g/dL (32.0-36.0); Mean Corpuscular Volume 94.3 fL (80.0-100.0); Monocytes # (auto) 0.2 10 ^3/uL (0-1.3); Monocytes % (auto) 7.6 % (0.0-12.0); Neutrophils % (auto) 75.5 % (37.0-80.0); Nucleated Red Blood Cells % 0.1 %; Platelet Count (auto) 151 10^3/uL (140-450); Red Blood Cells 3.73 10^6/uL (4.0-5.20); Red Cell Distribution Width 15.3 % (11.8-14.3); White Blood Cell 2.6 10^3/uL (4.4-10.8)
--- NOTE | 2024-10-22 10:38 | DVH ---
XY CHEST PORTABLE, HISTORY: preop COMPARISON: None None TECHNICAL DATA: 1 view of the chest was obtained. FINDINGS: Lines and tubes: None Cardiomediastinal silhouette: normal Pulmonary vasculature: normal Lung expansion: normal Lung airspace: Right mid lung zone airspace opacity could be atelectasis. Lung interstitium: normal Pleura: normal Pneumothorax: no Bones: Unremarkable Other: no IMPRESSION: Right mid lung zone airspace opacity could be atelectasis.
[2024-10-22 10:52] LABS: Potassium 4.4 mmol/L (3.5-5.1); Sodium 142 mmol/L (136-145)
[2024-10-22 10:53] LABS: Anion Gap 8 (5-15); Carbon Dioxide 24 mmol/L (20-31)
[2024-10-22 10:54] LABS: Calcium 9.6 mg/dL (8.7-10.4)
[2024-10-22 10:58] LABS: Glucose 102 mg/dL (74-106)
[2024-10-22 10:59] LABS: BUN/Creatinine Ratio 15.9 (10.0-20.0); Blood Urea Nitrogen 11 mg/dL (9-23); Chloride 110 mmol/L (98-107)
--- NOTE | 2024-10-22 14:12 | DVHHP2 ---
Admitting Diagnosis: Left ankle fracture History of Present Illness 69-year-old female presents with a chief complaint of left ankle pain s/p fall. Patient states that she had a fall x 1 week ago and fractured her left ankle. Patient mentions that she was sent here to be admitted for surgery on her ankle by Dr. Mobley. Patient is in a cast at this time. 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 History Family History Family History: Reviewed,noncontributory to illness Social History Smoker: Non-Smoker, Quit Greater Than 1 Year Alcohol: Denies ETOH Use Drugs: Denies Drug Use Lives In: Home Allergies: Coded Allergies: NO KNOWN ALLERGIES (Unverified , 02/03/21) Home Meds Active Scripts Hydrocodone-Acetaminophen (Hydrocodone Bitartrate/AC 5-325 mg) 1 Tab Tab, 1 TAB PO Q8HP PRN for 7 Days, #21 TAB Prov:RICH NOLASCO MD 10/16/24 Pregabalin (Lyrica) 100 Mg Cap, 1 CAP PO TID PRN for 30 Days, #90 CAP Prov:DANIEL SIMPSON MD 07/30/24 Naproxen (NAPROSYN TABLET) 500 Mg Tb, 500 MG GT BID for 20 Days, #40 TAB Prov:PANKAJ PAIZ MD 04/14/24 Reported Medications Rosuvastatin Calcium (Crestor) 5 Mg Tab, 5 MG PO DAILY, TAB 02/03/21 Citalopram Hydrobromide (Celexa) 10 Mg Tab, 10 MG PO, TAB 02/03/21 Vital Signs Vital Signs Date Time Temp Pulse Resp B/P (MAP) Pulse Ox O2 Delivery O2 Flow Rate FiO2 10/22/24 12:00 76 16 129/69 (89) 97 10/22/24 08:40 Room Air 10/22/24 08:40 97.4 97.4 10/22/24 08:35 0 21 Physical Exam Generally 69 years old woman, well nourished well developed. No apparent distress HEENT-atraumatic normocephalic Heart-regular rate and rhythm Lungs mild expiratory wheezing right Abdomen soft, nontender nondistended Musculoskeletal-left ankle fracture, tender to palpate, positive distal pulse Muscular Neuro-AO x3, no focal deficits Results Labs Test 10/22/24 10:19 Range/Units White Blood Count 2.6 L 4.4-10.8 10^3/uL Red Blood Count 3.73 L 4.0-5.20 10^6/uL Hemoglobin 11.5 L 12.2-16.2 g/dL Hematocrit 35.1 L 36.0-46.0 % Mean Corpuscular Volume 94.3 80.0-100.0 fL Mean Corpuscular Hemoglobin 30.9 28.0-32.0 pg Mean Corpuscular Hemoglobin Concent 32.8 32.0-36.0 g/dL Red Cell Distribution Width 15.3 H 11.8-14.3 % Platelet Count 151 140-450 10^3/uL Mean Platelet Volume 8.6 6.9-10.8 fL Neutrophils (%) (Auto) 75.5 37.0-80.0 % Lymphocytes (%) (Auto) 14.0 10.0-50.0 % Monocytes (%) (Auto) 7.6 0.0-12.0 % Eosinophils (%) (Auto) 2.1 0.0-7.0 % Basophils (%) (Auto) 0.8 0.0-2.0 % Neutrophils # (Auto) 2.0 1.6-8.6 10 ^3/uL Lymphocytes # (Auto) 0.4 0.4-5.4 10 ^3/uL Monocytes # (Auto) 0.2 0-1.3 10 ^3/uL Eosinophils # (Auto) 0.1 0-0.8 10 ^3/uL Basophils # (Auto) 0 0-0.2 10 ^3/uL Nucleated Red Blood Cells 0.1 % Sodium Level 142 136-145 mmol/L Potassium Level 4.4 3.5-5.1 mmol/L Chloride Level 110 H 98-107 mmol/L Carbon Dioxide Level 24 20-31 mmol/L Anion Gap 8 5-15 Blood Urea Nitrogen 11 9-23 mg/dL Creatinine 0.69 0.550-1.02 mg/dL Glomerular Filtration Rate Calc 95 >90 mL/min BUN/Creatinine Ratio 15.9 10.0-20.0 Serum Glucose 102 74-106 mg/dL Calcium Level 9.6 8.7-10.4 mg/dL Primary Diagnosis Left ankle fracture Plan Left ankle fracture see him as an outpatient plan for surgery Orthopedic consult Pain control Antiemetic Bowel regimen Cardiac diet NPO midnight Check INR IV fluids started in six nine on October 23 Resume meds. And resume chemo med sotorasib for lung cancer SCD for DVT prophylaxis PPI for GI prophylaxis Full code NPO after midnight Plan discussed with: Patient Problems List: (1) Closed left ankle fracture Status: Acute Date of Service: Oct 22, 2024 Billing Provider: ANKITA MAYS MD Common Visit Codes: [id number] INP/OBS CARE (MOD) ANKITA MAYS MD Oct 22, 2024 14:12
[2024-10-22] MEDS ORDERED: DOCUSATE SOD 100 MG CAP PO PRN (14:15)
[2024-10-22] MEDS ORDERED: ACETAMINOPHEN 325 MG TAB PO PRN (14:15)
[2024-10-22 14:34] LABS: INR 0.98 (0.9-1.15); Prothrombin Time 10.4 sec (9.3-11.8)
[2024-10-22] MEDS: HYDROmorphone HCL 2 MG/ML VL/or syr IV PRN (16:13)
[2024-10-22 16:17] VITALS: BP 120/69; PULSE 88; RESP 18; TEMP 98.2; O2SAT 97
[2024-10-22 17:00] VITALS: BP 120/69; PULSE 88; RESP 18; TEMP 98.2; O2SAT 97
[2024-10-22 20:00] VITALS: PULSE 91; RESP 17; O2SAT 94
[2024-10-22 21:00] VITALS: BP 112/71; PULSE 86; RESP 17; TEMP 97.8; O2SAT 94
--- NOTE | 2024-10-22 21:35 | DVHSR ---
APPROVED REPORT EXAM: Two-dimensional and M-mode echocardiogram with Doppler and color Doppler. Blood Pressure: 138/65 mmHg INDICATION CAD RISK FACTORS Height: 5'2", Weight: 160 DIMENSIONS LVDd3.9 (3.8-5.7cm)LA (2D)3.3 (1.9-4.0cm)Aortic Root3.0 (2.0-3.7cm) LVDs2.4 (2.5-4.0cm)LA (MM) (1.9-4.0cm)Aortic Cusp Exc1.6 (1.5-2.0cm) EF (%) 65.0 (55-70%)Rt. Atrium3.4 (1.9-4.0cm)Asc. Aorta cm IVSd1.0 (0.7-1.1cm)RV (D) (1.8-2.4cm) PWd1.0 (0.7-1.1cm) Mitral Valve MitralMitral Stenosis E wave0.78m/sMV Mean GR.mmHg A wave0.81m/sMV Peak GR.mmHg E/A ratio1.02D MVAcm2 DECEL [id number] 1/2 Timems Aortic Valve Aortic ValveAortic Stenosis V10.76m/Ewa Mean GR.4mmHg V21.52m/Ewa Peak GR.9mmHg LVOT Diameter1.7 (1.8-2.4cm)Doppler AVA1.13cm2 Pulmonic Valve V20.80m/s Tricuspid Valve TR Velocity2.74m/s [id number] Other Information Technically limited study due to body habitus, patient lying flat. Conclusion NORMAL LV EF OF 65% NORMAL VALVES NO EFFUSION NORMAL RV FUNCTION
[2024-10-22] MEDS: ATORVASTATIN 20 MG TAB PO SCH (21:39)
[2024-10-23] VITALS (8 sets, daily range): BP systolic 108–134; BP diastolic 64–75; PULSE 74–99; RESP 12–19; TEMP 97.5–99.1; O2SAT 90–100
[2024-10-23] MEDS: LACTATED RINGER'S 1,000 ML IV ONE (05:48)
[2024-10-23 06:21] LABS: Basophils # (auto) 0 10 ^3/uL (0-0.2); Basophils % (auto) 0.8 % (0.0-2.0); Eosinophils # (auto) 0.1 10 ^3/uL (0-0.8); Eosinophils % (auto) 2.5 % (0.0-7.0); Hematocrit 32.6 % (36.0-46.0); Hemoglobin 11.2 g/dL (12.2-16.2); Lymphocytes # (auto) 0.4 10 ^3/uL (0.4-5.4); Lymphocytes % (auto) 13.7 % (10.0-50.0); Mean Corpuscular Hemoglobin 32.1 pg (28.0-32.0); Mean Corpuscular Hgb Conc. 34.4 g/dL (32.0-36.0); Mean Corpuscular Volume 93.5 fL (80.0-100.0); Monocytes # (auto) 0.2 10 ^3/uL (0-1.3); Monocytes % (auto) 8.3 % (0.0-12.0); Neutrophils # (auto) 2.1 10 ^3/uL (1.6-8.6); Neutrophils % (auto) 74.7 % (37.0-80.0); Nucleated Red Blood Cells % 0.2 %; Platelet Count (auto) 149 10^3/uL (140-450); Red Blood Cells 3.49 10^6/uL (4.0-5.20); Red Cell Distribution Width 15.3 % (11.8-14.3); White Blood Cell 2.8 10^3/uL (4.4-10.8)
[2024-10-23 06:35] LABS: Alanine Aminotransferase 29 U/L (7-40); Albumin 4.2 g/dL (3.2-4.8); Alkaline Phosphatase 79 U/L (46-116); Anion Gap 9 (5-15); Aspartate Aminotransferase 24 U/L (13-40); BUN/Creatinine Ratio 17.1 (10.0-20.0); Blood Urea Nitrogen 13 mg/dL (9-23); Calcium 9.5 mg/dL (8.7-10.4); Carbon Dioxide 21 mmol/L (20-31); Glucose 98 mg/dL (74-106); Potassium 4.2 mmol/L (3.5-5.1); Sodium 140 mmol/L (136-145); Total Protein 6.4 g/dL (5.7-8.2)
[2024-10-23 06:36] LABS: Bilirubin, Total 0.7 mg/dL (0.2-1.0)
[2024-10-23 06:38] LABS: Chloride 110 mmol/L (98-107)
--- NOTE | 2024-10-23 08:01 | ECG ---
[facility] Test Date: 2024-10-22 Test Time: 11:02:06 Pat Name: TERRI OWUSU Department: ER Room: [facility] A Gender: F Woodworking Machine Operator: MORRIS : 1955 Requested By: CHRISTINE HARRIS Order Number: [id number] Reading MD: Omar Bower Measurements Intervals [place] Rate: 77 P: 67 ID: [id number] QRS: 43 QRSD: 120 T: 38 QT: 379 QTc: 429 Interpretive Statements Sinus rhythm Incomplete left bundle branch block Electronically Signed On 10-25-2024 22:31:21 PDT by Omar Bower Please click the below link to view image of tracing.
[2024-10-23] MEDS ORDERED: KETAMINE 50mg/ML 1ml syringe ONE (10:42)
[2024-10-23] MEDS ORDERED: ONDANSETRON HCL 4 MG/2 ML VIAL ONE (10:43)
[2024-10-23] MEDS ORDERED: KETOROLAC TROMETH 30 MG/ML 1ML VIAL ONE (10:43)
[2024-10-23] MEDS ORDERED: HYDROmorphone HCL 2 MG/ML VL/or syr ONE (10:43)
[2024-10-23] MEDS ORDERED: LIDOCAINE 2% (LOCAL ANESTH.) PF 5ml SDV ONE (10:43)
[2024-10-23] MEDS ORDERED: fentaNYL CITRATE 100 MCG/2 ML VL ONE (10:43)
[2024-10-23] MEDS ORDERED: PROPOFOL 10 MG/ML 20 ML IV ONE (10:43)
[2024-10-23] MEDS ORDERED: MIDAZOLAM HCL 2MG/2ML 2ml VIAL (1mg/ml) ONE (10:43)
[2024-10-23] MEDS ORDERED: DexAMETHasone SOD PHOS 10MG/1ML VIAL INJ ONE (10:43)
[2024-10-23] MEDS ORDERED: GLYCOPYRROLATE 0.2 MG/ML 1ML VIAL ONE (10:43)
--- NOTE | 2024-10-23 11:47 | DVHINCON2 ---
Date of service: Oct 22, 2024 Reason for Consultation Left ankle fracture History of Present Illness 69 yo F sp mechanical fall and twisted her left ankle -- immediate pain/swelling/inability to bear weight. 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 No cp/sob/abd pain/numbness/tingling. 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 ROASTER History Family History Family History: Reviewed,noncontributory to illness Social History Smoker: Non-Smoker, Quit Greater Than 1 Year Alcohol: Denies ETOH Use Drugs: Denies Drug Use Lives In: Home Allergies: Coded Allergies: NO KNOWN ALLERGIES (Unverified , 02/03/21) Home Meds Active Scripts Apixaban Base (ELIQUIS) 2.5 Mg Tab, 2.5 MG PO BID for 14 Days, #28 TAB 0 Refills Prov:MIKE JAIMES RESIDENT 10/24/24 Hydrocodone-Acetaminophen (Hydrocodone Bitartrate/AC 5-325 mg) 1 Tab Tab, 1 TAB PO Q8HP PRN for 7 Days, #21 TAB Prov:RICH NOLASCO MD 10/16/24 Pregabalin (Lyrica) 100 Mg Cap, 1 CAP PO TID PRN for 30 Days, #90 CAP Prov:DANIEL SIMPSON MD 07/30/24 Naproxen (NAPROSYN TABLET) 500 Mg Tb, 500 MG GT BID for 20 Days, #40 TAB Prov:PANKAJ PAIZ MD 04/14/24 Reported Medications Rosuvastatin Calcium (Crestor) 5 Mg Tab, 5 MG PO DAILY, TAB 02/03/21 Citalopram Hydrobromide (Celexa) 10 Mg Tab, 10 MG PO, TAB 02/03/21 Current Medications Current Medications Medications (Trade) Dose Ordered Sig/Cliff Route PRN Reason Start Time Stop Time Status Last Admin Atorvastatin Calcium (Lipitor) 10 mg HS PO 10/22/24 22:00 10/22/24 21:39 Docusate Sodium (Colace Capsule) 100 mg BIDPRN PRN PO FOR CONSTIPATION 10/22/24 14:15 Acetaminophen (Tylenol Tablet) 650 mg Q6HP PRN PO PAIN SCALE 1-3 OR TEMP>100.4 10/22/24 14:15 Acetaminophen/ Hydrocodone Bitart ([place]iddie 5/325MG Tab) 1 tab Q4HP PRN PO MODERATE PAIN (4-6 PAIN SCALE) 10/22/24 14:15 Hydromorphone HCl (Dilaudid Injection) 0.5 mg Q4HP PRN IV SEVERE PAIN (7-10 PAIN SCALE) 10/22/24 14:15 10/23/24 04:50 Ondansetron HCl (Zofran) 4 mg Q4HP PRN IV NAUSEA / VOMITING 10/22/24 14:15 Cefazolin Sodium 50 ml @ 100 mls/hr Q8HR IV 10/23/24 14:00 10/24/24 06:29 UNV Cefepime HCl 50 ml @ 12.5 mls/hr DAILY IV 10/24/24 10:00 UNV Review of Systems 10 point ROS is neg except per HPI Vital Signs Vital Signs Date Time Temp Pulse Resp B/P (MAP) Pulse Ox O2 Delivery O2 Flow Rate FiO2 10/23/24 09:00 99.1 84 17 120/67 (84) 94 99.1 10/23/24 08:00 Room Air* 0 21 Physical Exam NAD LLE: splint intact +ehl/fhl foot wwp Labs/Diagnostic Data Labs Test 10/23/24 05:13 10/22/24 10:19 Range/Units White Blood Count 2.8 L 4.4-10.8 10^3/uL Red Blood Count 3.49 L 4.0-5.20 10^6/uL Hemoglobin 11.2 L 12.2-16.2 g/dL Hematocrit 32.6 L 36.0-46.0 % Mean Corpuscular Volume 93.5 80.0-100.0 fL Mean Corpuscular Hemoglobin 32.1 H 28.0-32.0 pg Mean Corpuscular Hemoglobin Concent 34.4 32.0-36.0 g/dL Red Cell Distribution Width 15.3 H 11.8-14.3 % Platelet Count 149 140-450 10^3/uL Mean Platelet Volume 8.9 6.9-10.8 fL Neutrophils (%) (Auto) 74.7 37.0-80.0 % Lymphocytes (%) (Auto) 13.7 10.0-50.0 % Monocytes (%) (Auto) 8.3 0.0-12.0 % Eosinophils (%) (Auto) 2.5 0.0-7.0 % Basophils (%) (Auto) 0.8 0.0-2.0 % Neutrophils # (Auto) 2.1 1.6-8.6 10 ^3/uL Lymphocytes # (Auto) 0.4 0.4-5.4 10 ^3/uL Monocytes # (Auto) 0.2 0-1.3 10 ^3/uL Eosinophils # (Auto) 0.1 0-0.8 10 ^3/uL Basophils # (Auto) 0 0-0.2 10 ^3/uL Nucleated Red Blood Cells 0.2 % Sodium Level 140 136-145 mmol/L Potassium Level 4.2 3.5-5.1 mmol/L Chloride Level 110 H 98-107 mmol/L Carbon Dioxide Level 21 20-31 mmol/L Anion Gap 9 5-15 Blood Urea Nitrogen 13 9-23 mg/dL Creatinine 0.76 0.550-1.02 mg/dL Glomerular Filtration Rate Calc 86 >90 mL/min BUN/Creatinine Ratio 17.1 10.0-20.0 Serum Glucose 98 74-106 mg/dL Calcium Level 9.5 8.7-10.4 mg/dL Total Bilirubin 0.7 0.2-1.0 mg/dL Aspartate Amino Transferase (AST) 24 13-40 U/L Alanine Aminotransferase (ALT) 29 7-40 U/L Alkaline Phosphatase 79 46-116 U/L Total Protein 6.4 5.7-8.2 g/dL Albumin 4.2 3.2-4.8 g/dL Prothrombin Time 10.4 9.3-11.8 sec Prothrombin Time INR 0.98 0.9-1.15 Plan/Recommendation 69 yo F with displaced left bimalleolar ankle fracture 1. Plan for open reduction internal fixation of left ankle fracture Risks benefits options and alternatives discussed in depth. Risks include but not exclusive to bleeding infection nerve injury hardware failure nonunion malunion chronic pain blood clots cardiac and pulmonary complications chronic pain and . Patient understands the risks and wishes to proceed with surgery. 2. NPO/IVF 3. medical clearance Plan discussed with: Patient NILSON GUZMAN MD Oct 23, 2024 11:46
[2024-10-23] MEDS: LIDOCAINE 1% HCL (LOCAL ANESTH.) INJ 20ML MDV ONE (12:40)
[2024-10-23] MEDS: BUPIVACAINE HCL 0.25% P/F 10 ML VIAL ONE (12:40)
[2024-10-23] MEDS ORDERED: HYDROmorphone HCL 2 MG/ML VL/or syr IV PRN (13:00)
[2024-10-23] MEDS: ceFAZolin 2 GM/D5W100ml 100 ML IV ONE (13:13)
[2024-10-23] MEDS: CEFEPIME 1GM/ 50ML 50 ML IV ONE (13:13)
[2024-10-23] MEDS: ONDANSETRON HCL 4 MG/2 ML VIAL IV PRN (13:35)
--- NOTE | 2024-10-23 14:12 | DVH ---
FLUOROSCOPY TIME: 25.2nd TECHNIQUE: Intraoperative radiographs of the left ankle were obtained. COMPARISON: None FINDINGS: Refer to intraoperative report for further evaluation. IMPRESSION: Refer to intraoperative report for further evaluation.
[2024-10-23] MEDS: FAMOTIDINE (10MG/ML) 2ML VL IV ONE (15:05)
[2024-10-23] MEDS: ceFAZolin 1GM/50ML 50 ML IV SCH (15:07)
--- NOTE | 2024-10-23 17:25 | DVHPNRES ---
Progress Note Date Seen: Oct 23, 2024 Resident Creating Document: JHAJJJUDIKOMAL RESIDENT Medical Necessity Reason Pt with a Central, PICC or Fol: No Subjective Review of Systems HPI Patient is a 69-year-old female who presented to the ED with a chief complaint of left ankle pain status post fall. Patient states she fell about 1 week ago and twisted her and and fractured it. She was seen by Dr. Mobley who advised her to get admitted be taking for surgery. Patient at present had a cast on her left lower extremity. 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 t.i.d., rosuvastatin 5mg Review of systems Patient seen and examined at the bedside before being taken for surgery Denies of any shortness of breath, chest pain, palpitations Left foot in a cast Objective vital signs Vital Sign Date Time Temp Pulse Resp B/P (MAP) Pulse Ox O2 Delivery O2 Flow Rate FiO2 10/23/24 17:00 97.8 89 19 134/75 (94) 95 97.8 10/23/24 13:05 Room Air 0 95 Total Intake and Output 10/22/24 10/22/24 10/23/24 15:00 23:00 07:00 Intake Total 800 ml 350 ml Balance 800 ml 350 ml medications Current Medications Medications Dose Ordered Sig/Cliff Route Start Time Stop Time Status Last Admin Dose Admin Atorvastatin Calcium 10 mg HS PO 10/22/24 22:00 10/22/24 21:39 10 MG Docusate Sodium 100 mg BIDPRN PRN PO 10/22/24 14:15 Acetaminophen 650 mg Q6HP PRN PO 10/22/24 14:15 Acetaminophen/ Hydrocodone Bitart 1 tab Q4HP PRN PO 10/22/24 14:15 Hydromorphone HCl 0.5 mg Q4HP PRN IV 10/22/24 14:15 10/23/24 04:50 0.5 MG Ondansetron HCl 4 mg Q4HP PRN IV 10/22/24 14:15 10/23/24 13:35 4 MG Cefazolin Sodium 50 ml @ 100 mls/hr Q8HR IV 10/23/24 14:00 10/24/24 06:29 10/23/24 15:07 100 MLS/HR Cefepime/Dextrose 50 ml @ 12.5 mls/hr Q12HR IV 10/24/24 10:00 Examination Constitutional: Patient was alert and oriented to time, place and person and does not appear to be in any acute distress Gen - no pallor, no icterus, no cyanosis, no clubbing, no LAD, no edema . Skin - Patients skin is warm and dry.. HEENT - normocephalic, atraumatic, moist mucous membranes. Neck - full ROM, no LAD Pulmonary - B/L equal air entry. no crackles , no wheezing, no stridor. cardiovascular - normal S1,S2 heard. no murmurs heard. GI - soft abdomen. no hepatospleenomegaly. Bowel sounds normoactive Neurological - Bilateral upper extremity strength 5/5, right lower extremity strength 5/5, left lower extremity in the cast at the ankle, normal strength at hip joint, no facial droop, normal speech, no tremor, no sensory deficiets. laboratory and microbiology Laboratory Tests 10/23/24 05:13 Test 10/23/24 05:13 Range/Units Serum Glucose 98 74-106 mg/dL Problem List/Assessment/Plan Problem List/Assessment/Plan Assessment Left Ankle fracture status post fall Suspected right lung atelectasis History of major depressive disorder Chest x-ray shows right mid lung opacity suspicious for atelectasis Echo shows LVEF 65%, normal valves, no effusion, normal RV function Plan - patient underwent surgery with open reduction and internal fixation of left ankle fracture - pain management with the IV Dilaudid and Sharon p.o. - IV fluids - IV antibiotics cefazolin 1 g q.8 hours 3 doses - IV cefepime 2 g IV q.12 hours - continued on citalopram 10 mg Goals of care discussed with the patient for over 21 minutes. Full code Plan discussed with Dr. Bowens Plan discussed with: Patient My Orders My Orders Orders - MIKE JAIMES RESIDENT Procedure Category Date Status Time C Arm Fluoroscopy Up XY 10/23/24 Resulted To 60min 13:27 L Ankle 2 View Xray XY 10/23/24 Resulted 13:27 Date of Service: Oct 23, 2024 Billing Provider: RADHA BOWENS MD Common Visit Codes: [id number] INP/OBS CARE(HIGH) MIKE JAIMES RESIDENT Oct 23, 2024 17:25 RADHA BOWENS MD Oct 24, 2024 14:49
[2024-10-24 01:00] VITALS: BP 118/73; PULSE 92; RESP 18; TEMP 98.2; O2SAT 92
[2024-10-24 05:00] VITALS: BP 130/72; PULSE 69; RESP 18; TEMP 97.3; O2SAT 95
[2024-10-24] MEDS: HYDROcodone-ACET 5/325MG TAB PO PRN (06:11)
[2024-10-24 06:37] LABS: Alanine Aminotransferase 21 U/L (7-40); Albumin 3.9 g/dL (3.2-4.8); Alkaline Phosphatase 72 U/L (46-116); Anion Gap 10 (5-15); Aspartate Aminotransferase 21 U/L (13-40); BUN/Creatinine Ratio 15.6 (10.0-20.0); Blood Urea Nitrogen 12 mg/dL (9-23); Calcium 9.2 mg/dL (8.7-10.4); Carbon Dioxide 23 mmol/L (20-31); Glucose 99 mg/dL (74-106); Potassium 3.6 mmol/L (3.5-5.1); Sodium 140 mmol/L (136-145)
[2024-10-24 06:38] LABS: Bilirubin, Total 0.6 mg/dL (0.2-1.0)
[2024-10-24 06:39] LABS: Chloride 107 mmol/L (98-107)
[2024-10-24 07:36] LABS: Basophils # (auto) 0 10 ^3/uL (0-0.2); Basophils % (auto) 0.5 % (0.0-2.0); Eosinophils # (auto) 0.1 10 ^3/uL (0-0.8); Eosinophils % (auto) 1.3 % (0.0-7.0); Hematocrit 29.5 % (36.0-46.0); Hemoglobin 10.3 g/dL (12.2-16.2); Lymphocytes # (auto) 0.4 10 ^3/uL (0.4-5.4); Lymphocytes % (auto) 10.3 % (10.0-50.0); Mean Corpuscular Hemoglobin 32.5 pg (28.0-32.0); Mean Corpuscular Hgb Conc. 34.8 g/dL (32.0-36.0); Mean Corpuscular Volume 93.5 fL (80.0-100.0); Monocytes # (auto) 0.4 10 ^3/uL (0-1.3); Monocytes % (auto) 8.5 % (0.0-12.0); Neutrophils # (auto) 3.3 10 ^3/uL (1.6-8.6); Neutrophils % (auto) 79.4 % (37.0-80.0); Platelet Count (auto) 163 10^3/uL (140-450); Red Blood Cells 3.16 10^6/uL (4.0-5.20); Red Cell Distribution Width 14.5 % (11.8-14.3); White Blood Cell 4.1 10^3/uL (4.4-10.8)
--- NOTE | 2024-10-24 07:59 | DVHPN2 ---
Progress Note Date Seen: Oct 24, 2024 Medical Necessity Reason Pt with a Central, PICC or Fol: No Subjective Patient reports: No new complaints Objective vital signs Vital Sign Date Time Temp Pulse Resp B/P (MAP) Pulse Ox O2 Delivery O2 Flow Rate FiO2 10/24/24 05:00 97.3 69 18 130/72 (91) 95 97.3 10/23/24 20:00 Room Air* 0 21 Total Intake and Output 10/23/24 10/23/24 10/24/24 15:00 23:00 07:00 Intake Total 100 ml 700 ml 300 ml Balance 100 ml 700 ml 300 ml medications Current Medications Medications Dose Ordered Sig/Cliff Route Start Time Stop Time Status Last Admin Dose Admin Atorvastatin Calcium 10 mg HS PO 10/22/24 22:00 10/23/24 21:59 10 MG Docusate Sodium 100 mg BIDPRN PRN PO 10/22/24 14:15 Acetaminophen 650 mg Q6HP PRN PO 10/22/24 14:15 Acetaminophen/ Hydrocodone Bitart 1 tab Q4HP PRN PO 10/22/24 14:15 10/24/24 06:11 1 TAB Hydromorphone HCl 0.5 mg Q4HP PRN IV 10/22/24 14:15 10/24/24 00:57 0.5 MG Ondansetron HCl 4 mg Q4HP PRN IV 10/22/24 14:15 10/23/24 23:47 4 MG Cefepime/Dextrose 50 ml @ 12.5 mls/hr Q12HR IV 10/24/24 10:00 Citalopram Hydrobromide 10 mg DAILY PO 10/24/24 10:00 Examination: GENERAL:Normal, MSK:Abnormal laboratory and microbiology Laboratory Tests 10/24/24 07:16 10/24/24 05:11 Test 10/24/24 05:11 Range/Units Serum Glucose 99 74-106 mg/dL Problem List/Assessment/Plan Problem List/Assessment/Plan 69 year old female who is s/p ORIF of left ankle POD 1 1. Pain control 2. NWB x 6 weeks 3. Continue with splint in place for 2 weeks 4. Follow up at [facility] clinic in 2 weeks 5. DVT PPX 6. Clear for discharge from orthopedic standpoint Plan discussed with: Patient Date of Service: Oct 24, 2024 Billing Provider: NILSON GUZMAN MD Common Visit Codes: NOT BILLABLE BERRY KNOX NP Oct 24, 2024 07:59
[2024-10-24] MEDS: CITALOPRAM HYDROBR 20 MG TAB PO SCH (08:33)
[2024-10-24 09:00] VITALS: BP 119/75; PULSE 97; RESP 17; TEMP 97.7; O2SAT 92
[2024-10-24] MEDS: CEFEPIME 2GM/50ML 50 ML IV SCH (10:06)
[2024-10-24 10:30] VITALS: BP 95/50; PULSE 88; RESP 16
--- NOTE | 2024-10-24 20:00 | DVHDSRES ---
Discharge Summary Date of Admission Resident Creating Document: MIKE JAIMES RESIDENT Oct 22, 2024 at 14:06 Date of Discharge: Oct 24, 2024 Admitting Diagnosis Left ankle fracture Wounds: Left ankle status post open reduction internal fixation in a splint Labs/Diagnostic Data: Laboratory Results Test 10/24/24 07:16 10/24/24 05:11 10/22/24 10:19 White Blood Count 4.1 10^3/uL (4.4-10.8) Red Blood Count 3.16 10^6/uL (4.0-5.20) Hemoglobin 10.3 g/dL (12.2-16.2) Hematocrit 29.5 % (36.0-46.0) Mean Corpuscular Volume 93.5 fL (80.0-100.0) Mean Corpuscular Hemoglobin 32.5 pg (28.0-32.0) Mean Corpuscular Hemoglobin Concent 34.8 g/dL (32.0-36.0) Red Cell Distribution Width 14.5 % (11.8-14.3) Platelet Count 163 10^3/uL (140-450) Mean Platelet Volume 9.6 fL (6.9-10.8) Neutrophils (%) (Auto) 79.4 % (37.0-80.0) Lymphocytes (%) (Auto) 10.3 % (10.0-50.0) Monocytes (%) (Auto) 8.5 % (0.0-12.0) Eosinophils (%) (Auto) 1.3 % (0.0-7.0) Basophils (%) (Auto) 0.5 % (0.0-2.0) Neutrophils # (Auto) 3.3 10 ^3/uL (1.6-8.6) Lymphocytes # (Auto) 0.4 10 ^3/uL (0.4-5.4) Monocytes # (Auto) 0.4 10 ^3/uL (0-1.3) Eosinophils # (Auto) 0.1 10 ^3/uL (0-0.8) Basophils # (Auto) 0 10 ^3/uL (0-0.2) Nucleated Red Blood Cells 0.0 % Sodium Level 140 mmol/L (136-145) Potassium Level 3.6 mmol/L (3.5-5.1) Chloride Level 107 mmol/L (98-107) Carbon Dioxide Level 23 mmol/L (20-31) Anion Gap 10 (5-15) Blood Urea Nitrogen 12 mg/dL (9-23) Creatinine 0.77 mg/dL (0.550-1.02) Glomerular Filtration Rate Calc 84 mL/min (>90) BUN/Creatinine Ratio 15.6 (10.0-20.0) Serum Glucose 99 mg/dL (74-106) Calcium Level 9.2 mg/dL (8.7-10.4) Total Bilirubin 0.6 mg/dL (0.2-1.0) Aspartate Amino Transferase (AST) 21 U/L (13-40) Alanine Aminotransferase (ALT) 21 U/L (7-40) Alkaline Phosphatase 72 U/L (46-116) Total Protein 6.0 g/dL (5.7-8.2) Albumin 3.9 g/dL (3.2-4.8) Prothrombin Time 10.4 sec (9.3-11.8) Prothrombin Time INR 0.98 (0.9-1.15) Other Laboratory Tests 10/24/24 07:16 10/24/24 05:11 Brief Hx & Hospital Course: HPI Patient is a 69-year-old female who presented to the ED with a chief complaint of left ankle pain status post fall. Patient states she fell about 1 week ago and twisted her and and fractured it. She was seen by Dr. Mobley who advised her to get admitted be taking for surgery. Patient at present had a cast on her left lower extremity. 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 t.i.d., rosuvastatin 5mg Brief hospital course Patient was admitted to the hospital with left ankle fracture status post fall. Orthopedics were consulted and patient underwent left ankle open reduction and internal fixation and splint is placed for 2 weeks. Patient signed AMA and left the floor she could be discharged and instructions could be given. Patient was sent DVT prophylaxis with Eliquis 2.5 mg b.i.d. for 14 days Consults/Reason for consult Orthopedician consult for left ankle fracture Operations or Procedures Left ankle open reduction and internal fixation Condition at Discharge: Undetermined Final Diagnosis/Problems List Left ankle fracture status post open reduction and internal fixation History of lung cancer with metastasis status post chemotherapy and radiation Discharge Disposition: AMA Discharge Statement: "Patient was advised to return to the ER or call 911 if any headaches, dizziness, shortness of breath, chest pain, abdominal pain, bleeding, fevers, or worsening of medical condition. Patient was counseled about treatment plan, medications, possible side effects, patientverbalized understanding. All questions were answered to the best of my ability. This discharge took greater then 30 minutes in planning, reviewing documentation, counseling the patient, and discussing with other team members." ASSESSMENT ASSESSMENT Assessment Date of Service: Oct 24, 2024 Billing Provider: RADHA BOWENS MD Common Visit Codes: 14555-YZW/OBS DISCH DAY >30min MIKE JAIMES RESIDENT Oct 24, 2024 20:00 RADHA BOWENS MD Oct 26, 2024 08:40
[2024-10-24] MEDS ORDERED: APIX2.5T PO (20:01)
--- NOTE | 2024-10-27 18:33 | DVHOP2 ---
Operative Report - 2 Report Details Date: 10/23/24 Preop Diagnosis: Left dejuan ankle fracture Postop Diagnosis: as above Surgeon: Edgar Mobley MD Counter Intelligence: Juan CAMARILLO Anesthesiologist: Kaitlynn AGGARWAL Anesthesia: General Implant: Arthrex fibula nail; Ossio medial mal screw Consent: The patient was informed of the risks and benefits of the procedure. These include but are not limited to complications of anesthesia, postoperative infection, incomplete relief of symptoms, recurrence of symptoms, damage to blood vessels, nerves and tendons, deep venous thrombosis, pulmonary embolism and possible need for repeat surgery in the future. Estimated Blood Loss: 2 cc Name of Procedure Performed open reduction internal fixation of left ankle fracture; intraop fluoro Procedure Details Procedure Details: GROSS FINDINGS: Include a comminuted fracture involving the lateral malleolus, posterior mal with syndesmotic disruption HISTORY OF PRESENT ILLNESS: Risks/benefits/options and alternatives were discussed in length. Risks associated with anesthesia, infection, damage to nerves and blood vessels, and bleeding or blood clots. Problems after ankle fracture surgery include ankle joint stiffness, weakness, need for further surg maryann and arthritis. Possible complications after ankle fracture surgery include infection and problems with healing. PROCEDURE: After all potential complications and risks as well as risks and benefits of the above-mentioned procedure was discussed at length with the patient and family, informed consent was obtained. The lower extremity was then confirmed with the operating surgeon, the patient, the nursing staff and Department of Anesthesia. The patient was then transferred to preoperative area in the Operative Suite and placed on the operating room table in supine position. At this time, the anesthesia was performed. All bony prominences were well padded at this time. A nonsterile tourniquet was placed on the left upper thigh of the patient. This was then removed and the lower extremity was sterilely prepped and draped in the usual sterile fashion. The lower extremity was then elevated and exsanguinated using Esmarch and tourniquet was then placed to 250 mmHg. Next, after all bony and soft tissue landmarks were identified, a 2 cm longitudinal incision was made directly over the lateral mal fracture on the right ankle. A sharp dissection was carefully taken down to the level of bone taking care to protect the neurovascular structures. Once the bone was reached, the fractured site was identified. The bony ends were then opened and divided of all hematoma as well as excess periosteum within the fracture site. For her lateral side, she had a mid fibula fracture with shortening resulting in syndesmotic widening. With manual traction and manipulation with bone reduction clamps we were able to reduce patient fracture. Intraoperative fluoroscopy confirmed reduction.We then proceed with placement of fibula nail. Guidewire placed and appropriately reamed. Nail placed and locked distally and then a syndesmotic screw placed under fluoro. We then placed two k-wires in medial mal. We then drilled and placed a ossio screw. Next Fluorsocpy was used to visualize the hardware placement as well as the fracture reduction appeared to be in good anatomic position, all hardware was in good position. There was no lateralization of the joints. At this time, each wound was copiously irrigated and suctioned dry. The wounds were then closed using #2-0 Vicryl suture in subcutaneous fashion followed by 3-0 nylon on the skin. A sterile dressing was applied consistent with Adaptic, 4x4s, Kerlix, and Webril. An ankle splint was then placed on the right lower extremity. The patient was transferred back to the [facility] and to the Postanesthetic Care Unit. The patient tolerated the procedure well. There were no complications. Condition Good Disposition Still a Patient EDGAR MOBLEY MD Oct 27, 2024 18:33
== END 2024-10-24 12:32 | disposition left against medical advice (07) | DRG 493 ==
LOC: ER 08:12 → OVERFLOW 14:06 → WEST WING 15:46
PROVIDERS: ADMIT Student in an Organized Health Care Education/Training Program; ATTEND Student in an Organized Health Care Education/Training Program
PROC: 0QSK04Z Reposition Left Fibula with Internal Fixation Device, Open Approach (ICD-10-PCS; principal; 2024-10-23 11:52)
DX: S82.842A Displaced bimalleolar fracture of left lower leg, initial encounter for closed fracture (principal); C79.51 Secondary malignant neoplasm of bone; Z90.49 Acquired absence of other specified parts of digestive tract; Z79.899 Other long term (current) drug therapy; Z85.118 Personal history of other malignant neoplasm of bronchus and lung; W18.39XA Other fall on same level, initial encounter; Y93.89 Activity, other specified; Y92.89 Other specified places as the place of occurrence of the external cause; Y99.8 Other external cause status
CPT/HCPCS: 36415; 71045; 73600; 76000; 80048; 80053; 85025; 85610; 86850; 86900; 86901; 93005; 93306; 96374; 96376; 97163; G0378; J1100; J1885; J2003; J2250; J2405; J2704; J3490

== ENCOUNTER 2025-05-29 07:27 | Outpatient (CLI) | payer MEDICAID ==
[~2025-05-29 07:27] MED LIST changes: +APIX2.5T PO; +SACC250C PO; +VANC125C3 PO
[2025-05-29] MEDS ORDERED: fentaNYL CITRATE 100 MCG/2 ML VL ONE (08:01)
[2025-05-29] MEDS ORDERED: MIDAZOLAM HCL 2MG/2ML 2ml VIAL (1mg/ml) ONE (08:01)
[2025-05-29] MEDS ORDERED: KETAMINE 50mg/ML 1ml syringe ONE (08:01)
[2025-05-29] MEDS ORDERED: HYDROmorphone HCL 2 MG/ML VL/or syr ONE (08:01)
[2025-05-29] MEDS ORDERED: PROPOFOL 10 MG/ML 20 ML IV ONE (08:02)
[2025-05-29] MEDS ORDERED: ONDANSETRON HCL 4 MG/2 ML VIAL ONE (08:02)
[2025-05-29] MEDS ORDERED: KETOROLAC TROMETH 30 MG/ML 1ML VIAL ONE (08:02)
[2025-05-29] MEDS ORDERED: GLYCOPYRROLATE 0.2 MG/ML 1ML VIAL ONE (08:02)
[2025-05-29] MEDS ORDERED: LIDOCAINE 2% (LOCAL ANESTH.) PF 5ml SDV ONE (08:02)
== END 2025-05-29 17:00 | disposition home or self-care (01) ==
LOC: EDUNIT# 07:27 → LAB 07:27
PROVIDERS: ATTEND Student in an Organized Health Care Education/Training Program
DX: C34.11 Malignant neoplasm of upper lobe, right bronchus or lung (principal); C79.51 Secondary malignant neoplasm of bone; G89.3 Neoplasm related pain (acute) (chronic); R19.7 Diarrhea, unspecified
CPT/HCPCS: 85048; 87045; 87427; 87493; J1100; J1171; J1885; J2003; J2250; J2405; J2704; J3010

== ENCOUNTER 2025-06-14 06:26 | Outpatient (CLI) | payer MEDICAID ==
[~2025-06-14 06:26] MED LIST changes: -SACC250C PO; -VANC125C3 PO
[2025-06-14 07:42] LABS: Hematocrit 40.3 % (36.0-46.0); Hemoglobin 13.3 g/dL (12.2-16.2); Mean Corpuscular Hemoglobin 29.8 pg (28.0-32.0); Mean Corpuscular Volume 90.6 fL (80.0-100.0); Nucleated Red Blood Cells % 0.0 %
[2025-06-14 08:11] LABS: Alanine Aminotransferase 13 U/L (7-40); Anion Gap 10 (5-15); BUN/Creatinine Ratio 20.3 (10.0-20.0); Blood Urea Nitrogen 14 mg/dL (9-23); Carbon Dioxide 23 mmol/L (20-31); Glucose 95 mg/dL (74-106); Potassium 4.3 mmol/L (3.5-5.1); Sodium 143 mmol/L (136-145); Total Protein 7.1 g/dL (5.7-8.2)
[2025-06-14 08:12] LABS: Albumin 4.3 g/dL (3.2-4.8)
[2025-06-14 08:13] LABS: Bilirubin, Total 0.6 mg/dL (0.2-1.0); Thyroid Stimulating Hormone 1.24 uIU/mL (0.55-4.78)
[2025-06-14 08:40] LABS: Alkaline Phosphatase 187 U/L (46-116); Calcium 8.7 mg/dL (8.7-10.4); Chloride 110 mmol/L (98-107)
== END 2025-06-14 17:00 | disposition home or self-care (01) ==
LOC: LAB 06:26
PROVIDERS: ATTEND Student in an Organized Health Care Education/Training Program
DX: C34.11 Malignant neoplasm of upper lobe, right bronchus or lung (principal); G89.3 Neoplasm related pain (acute) (chronic); R19.7 Diarrhea, unspecified
CPT/HCPCS: 36415; 80053; 83615; 84436; 84443; 84480; 85025

== ENCOUNTER 2025-06-20 06:31 | Outpatient (CLI) | payer MEDICAID ==
[2025-06-20 07:57] LABS: Hematocrit 40.0 % (36.0-46.0); Hemoglobin 13.3 g/dL (12.2-16.2); Mean Corpuscular Hemoglobin 30.0 pg (28.0-32.0); Mean Corpuscular Volume 90.4 fL (80.0-100.0); Nucleated Red Blood Cells % 0.1 %
[2025-06-20 08:27] LABS: Alanine Aminotransferase 13 U/L (7-40); Albumin 4.3 g/dL (3.2-4.8); Anion Gap 10 (5-15); BUN/Creatinine Ratio 18.1 (10.0-20.0); Blood Urea Nitrogen 13 mg/dL (9-23); Calcium 9.1 mg/dL (8.7-10.4); Carbon Dioxide 24 mmol/L (20-31); Glucose 94 mg/dL (74-106); Magnesium 2.2 mg/dL (1.6-2.6); Potassium 4.3 mmol/L (3.5-5.1); Sodium 143 mmol/L (136-145); Total Protein 7.3 g/dL (5.7-8.2)
[2025-06-20 08:28] LABS: Bilirubin, Total 0.8 mg/dL (0.2-1.0)
[2025-06-20 08:32] LABS: Alkaline Phosphatase 184 U/L (46-116); Chloride 109 mmol/L (98-107); Cholesterol 272 mg/dL (< 200); HDL Cholesterol 67 mg/dL (40-59); Triglycerides 159 mg/dL (< 150)
[2025-06-20 08:52] LABS: Uric Acid 4.7 mg/dL (3.1-7.8)
[2025-06-20 09:01] LABS: Iron 59.0 ug/dL (50-170)
[2025-06-20 09:04] LABS: Total Iron Binding Capacity 301.0 ug/dL (250-425)
[2025-06-20 09:07] LABS: Free T3 3.47 pg/mL (2.3-4.2); Free T4 (Free Thyroxine) 1.07 ng/dL (0.89-1.76)
== END 2025-06-20 17:00 | disposition home or self-care (01) ==
LOC: LAB 06:31
PROVIDERS: ATTEND Family Medicine
DX: C79.9 Secondary malignant neoplasm of unspecified site (principal)
CPT/HCPCS: 36415; 80053; 80061; 82306; 82607; 83036; 83540; 83550; 83735; 84403; 84439; 84443; 84480; 84481; 84550; 85025; 87086